=== PATIENT | male | born 1940 | race Caucasian/White ===

== ENCOUNTER 2016-12-03 17:04 | Emergency (ER) | payer MEDICARE, OTHER ==
[2016-12-03 17:24] VITALS: TEMP 98.4
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
[2016-12-03 19:01] LABS: Basophils % (A) 0 %; CH 26.6; CHCM 31.2; Eosinophils # (A) 0.1 k/uL (0-0.7); Eosinophils % (A) 1 %; HCT 42.5 % (39.0-53.0); HGB 13.3 gm/dL (13.0-17.5); Hypochromasia Moderate; Luc # (Auto) 0.16; Luc % (Auto) 2; Lymphocytes # (A) 0.7 k/uL (1.0-4.8); Lymphocytes % (A) 10 %; MCH 26.7 pg (25.0-35.0); MCHC 31.2 g/dL (31.0-37.0); MCV 85.4 fL (80.0-100.0); Mean Platelet Volume 6.6; Monocytes # (A) 0.7 k/uL (0-1.0); Monocytes % (A) 10 %; Neutrophils # (A) 5.5 k/uL (1.3-7.7); Neutrophils % (A) 76 %; RBC 4.98 m/uL (4.30-5.90); RDW 14.5 % (11.5-15.5); WBC 7.2 k/uL (3.8-10.6); WBC (Perox) 6.94
[2016-12-03 19:07] LABS: Appearance,Urine Clear (Clear); Bilirubin,Urine Negative (Negative); Glucose,Urine (UA) Negative (Negative); Ketones,Urine Trace (Negative); Leukocyte Esterase,Urine Negative (Negative); Nitrite,Urine Negative (Negative); PH, Urine 6.5 (5.0-8.0); Protein,Urine Negative (Negative); Specific Gravity,Urine 1.007 (1.001-1.035); UA Billing (MACRO vs. MICRO) CHEM; Urobilinogen,Urine <2.0 mg/dL (<2.0)
[2016-12-03 19:12] LABS: ALT 43 U/L (21-72); AST 29 U/L (17-59); Alkaline Phosphatase 123 U/L (38-126); Anion Gap 7 mmol/L; Blood Urea Nitrogen 9 mg/dL (9-20); Carbon Dioxide 30 mmol/L (22-30); Chloride 101 mmol/L (98-107); Glucose 96 mg/dL (74-99); Non-African American GFR(MDRD) >60 (>60 ml/min/1.73 sqM); Potassium 4.4 mmol/L (3.5-5.1); Sodium 138 mmol/L (137-145); Total Bilirubin 1.1 mg/dL (0.2-1.3); Total Protein 6.9 g/dL (6.3-8.2)
--- NOTE | 2016-12-03 19:20 | XR ---
EXAMINATION TYPE: XR abdomen 2V DATE OF EXAM: 12/03/2016 7:11 PM COMPARISON: NONE HISTORY: Swelling TECHNIQUE: 3 views FINDINGS: There is no sign of intestinal obstruction or pneumoperitoneum. Fecal pattern is normal. Th ere is slight blunting of costophrenic angles. I see no pathologic calcifications over the kidneys. IMPRESSION: Nonacute abdomen. Pleural reaction and infiltrate and atelectasis at the lung bases is ne w compared to the chest x-ray of 03/31/2016
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
[2016-12-03 19:57] VITALS: RESP 16
[2016-12-03] MEDS ORDERED: MAGNESIUM CITRATE 296 ML BOTTLE PO ONE (20:17)
[2016-12-03 20:39] VITALS: BP 136/79; PULSE 77
== END 2016-12-03 20:38 | disposition home or self-care (01) ==
LOC: EC 17:04
DX: N43.3 Hydrocele, unspecified (principal); I86.1 Scrotal varices; I10 Essential (primary) hypertension; I25.10 Atherosclerotic heart disease of native coronary artery without angina pectoris; Z87.891 Personal history of nicotine dependence; Z79.01 Long term (current) use of anticoagulants; Z79.899 Other long term (current) drug therapy; Z86.73 Personal history of transient ischemic attack (TIA), and cerebral infarction without residual deficits
CPT/HCPCS: 36415; 74020; 76870; 80053; 81003; 85025; 87086; 93975; 99284

== ENCOUNTER 2016-12-13 12:44 | Inpatient (IN) | payer MEDICARE, OTHER ==
[2016-12-13 13:40] LABS: Basophils % (A) 1 %; CH 26.6; CHCM 32.6; Eosinophils # (A) 0.1 k/uL (0-0.7); Eosinophils % (A) 1 %; HCT 39.2 % (39.0-53.0); HDW 3.55; Hypochromasia Slight; Luc # (Auto) 0.22; Luc % (Auto) 3; Lymphocytes # (A) 0.6 k/uL (1.0-4.8); Lymphocytes % (A) 9 %; MCH 27.1 pg (25.0-35.0); MCHC 33.1 g/dL (31.0-37.0); MCV 81.9 fL (80.0-100.0); Mean Platelet Volume 6.6; Monocytes # (A) 0.7 k/uL (0-1.0); Monocytes % (A) 9 %; Neutrophils # (A) 5.8 k/uL (1.3-7.7); Neutrophils % (A) 78 %; Poikilocytosis Slight; RBC 4.79 m/uL (4.30-5.90); RDW 14.5 % (11.5-15.5); WBC 7.5 k/uL (3.8-10.6); WBC (Perox) 7.73
[2016-12-13 13:41] LABS: VBG PH 7.37 (7.31-7.41)
[2016-12-13 13:49] LABS: ALT 40 U/L (21-72); AST 23 U/L (17-59); Alkaline Phosphatase 127 U/L (38-126); Anion Gap 8 mmol/L; Blood Urea Nitrogen 10 mg/dL (9-20); Calcium 8.8 mg/dL (8.4-10.2); Carbon Dioxide 27 mmol/L (22-30); Chloride 98 mmol/L (98-107); Glucose 92 mg/dL (74-99); Non-African American GFR(MDRD) >60 (>60 ml/min/1.73 sqM); Potassium 4.1 mmol/L (3.5-5.1); Sodium 133 mmol/L (137-145); Total Bilirubin 0.9 mg/dL (0.2-1.3); Total Protein 6.4 g/dL (6.3-8.2)
[2016-12-13 13:50] LABS: INR 1.4 (<1.1); Prothrombin Time 14.1 sec (9.0-12.0)
--- NOTE | 2016-12-13 13:58 | XR ---
EXAMINATION TYPE: XR chest 2V DATE OF EXAM: 12/13/2016 COMPARISON: March 31, 2016 HISTORY: Dyspnea TECHNIQUE: Frontal and lateral views of the chest are obtained. FINDINGS: The cardiac silhouette is top normal. Mediastinal silhouette unremarkable otherwise. There are bilateral mild/moderate effusions, greater on the left. No pneumothorax. There is a fine reticular pattern of increased density throughout lung parenchyma of the lower lobes, consistent with mild interstitial phase pulmonary edema. Bones and soft tissues are unremarkable. IMPRESSION: NEW BILATERAL PLEURAL EFFUSIONS, GREATER ON THE LEFT, WITH EVIDENCE OF MILD INTERSTITIAL PHASE PULMON MODE EDEMA.
[2016-12-13 13:59] LABS: Creatine Kinase 78 U/L (55-170)
[2016-12-13 14:12] LABS: Creatine Kinase MB 1.1 ng/mL (0.0-2.4); Troponin I <0.012 ng/mL (0.000-0.034)
[2016-12-13] MEDS ORDERED: FUROSEMIDE 10 MG/ML 4 ML VIAL IV STA (14:25)
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
[2016-12-13] MEDS ORDERED: DILTIAZEM 125 MG in SODIUM CHLORIDE 0.9% 100 ML IV ONE (16:08)
[2016-12-13] MEDS: SODIUM CHLORIDE 0.9% 1,000 ML IV SCH (16:44)
[2016-12-13] MEDS: ATORVASTATIN 40 MG TAB PO SCH (21:10)
[2016-12-13] MEDS: METOPROLOL TARTRATE 12.5 MG TAB PO SCH (21:11)
[2016-12-13] MEDS: MEMANTINE 10 MG TAB PO SCH (21:11)
[2016-12-13] MEDS: NITROGLYCERIN OINT 1 INCH/GM PACKET TOPICAL SCH ×2 (21:11→21:22)
[2016-12-13] MEDS: APIXABAN 5 MG TAB PO SCH (21:11)
[2016-12-13] MEDS: LISINOPRIL 10 MG TAB PO SCH (21:11)
[2016-12-13] MEDS: DONEPEZIL 10 MG TAB PO SCH (21:11)
[2016-12-13] MEDS: FUROSEMIDE 10 MG/ML 4 ML VIAL IV SCH (22:37)
[2016-12-14] MEDS ORDERED: TURMERIC ROOT EXTRACT PO SCH (09:00)
[2016-12-14] MEDS ORDERED: FISH OIL PO SCH (09:00)
[2016-12-14] MEDS ORDERED: NON-FORMULARY DRUG (Ubidecarenone [Co Q-10] 100 MG) PO SCH (09:00)
[2016-12-14] MEDS ORDERED: DHA PO SCH (09:00)
[2016-12-14] MEDS ORDERED: OMEGA PO SCH (09:00)
[2016-12-14] MEDS ORDERED: EPA PO SCH (09:00)
[2016-12-14] MEDS ORDERED: NON-FORMULARY DRUG (Biotin [Biotin] 5 MG) PO SCH (09:00)
[2016-12-14] MEDS ORDERED: TURMERIC PO SCH (09:00)
[2016-12-14] MEDS ORDERED: amLODIPine 5 MG TAB PO SCH (09:00)
[2016-12-14] MEDS: FUROSEMIDE 10 MG/ML 4 ML VIAL IV SCH ×3 (09:20→23:54)
[2016-12-14] MEDS: APIXABAN 5 MG TAB PO SCH ×2 (09:20→20:28)
[2016-12-14] MEDS: CYANOCOBALAMIN 500 MCG TAB PO SCH (09:21)
[2016-12-14] MEDS: MEMANTINE 10 MG TAB PO SCH ×2 (09:21→20:28)
[2016-12-14] MEDS: MULTIVITAMINS, THERA 1 EACH TAB PO SCH (09:21)
[2016-12-14] MEDS: NITROGLYCERIN OINT 1 INCH/GM PACKET TOPICAL SCH ×3 (09:21→23:46)
[2016-12-14] MEDS: TAMSULOSIN 0.4 MG CAP.ER.24H PO SCH (09:21)
[2016-12-14] MEDS: LISINOPRIL 10 MG TAB PO SCH ×2 (09:22→20:28)
[2016-12-14] MEDS: METOPROLOL TARTRATE 12.5 MG TAB PO SCH ×2 (09:22→20:28)
[2016-12-14] MEDS: VIT A,C & E-LUTEIN-MINERALS 1 EACH TAB PO SCH (09:22)
[2016-12-14] MEDS: DONEPEZIL 10 MG TAB PO SCH ×2 (09:22→20:28)
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
--- NOTE | 2016-12-14 10:35 | P.PN ---
Progress Note - Text This is an addendum to the dictated cardiology consultation. The patient presents with a 6 weeks progressive edema, PND and orthopnea. He noted severe scrotal edema and has gained 30 pounds over 6 weeks. He has a history of CAD status post stenting of the RCA in 2012 with a normal systolic function and no significant valvular disease. The patient was seen in the emergency room and [place] few weeks ago was chest discomfort and was told that there was no evidence of acute ischemic event. He has not had any recent chest discomfort, he denies any palpitations but he had the recent episode of dizziness and presyncope with change of position. The patient has a history of chronic atrial fibrillation and has been maintained on anticoagulation. His physical examination is consistent with elevated JVD, severe edema in the lower extremities as well as in the scrotum. Evidence to suggest ascites and decreased breath sounds at the base. His lab data showed normal troponin and his NT proBNP is minimally elevated. The patient presents with severe fluid overload with a history of a normal systolic function in the past. The etiology of his symptoms is unclear. We will continue intravenous diuretics, add spironolactone and obtain an echocardiogram with Doppler. A lot of his symptoms are suggestive of right- sided failure. The patient proteins normal and his hemoglobin is normal as well. Depending on the results of the testing further recommendations will be made. Thank you for this consult we will follow with you.
--- NOTE | 2016-12-14 10:36 | ECHOF ---
Referral Reason:Pulmonary edema MEASUREMENTS -------- HEIGHT: 188.0 cm WEIGHT: 103.0 kg BP: 125/78 RVIDd: 3.2 cm (< 3.3) IVSd: 1.2 cm (0.6 - 1.1) LVIDd: 4.0 cm (3.9 - 5.3) LVPWd: 1.2 cm (0.6 - 1.1) IVSs: 1.8 cm LVIDs: 2.8 cm LVPWs: 1.6 cm LA Diam: 4.1 cm (2.7 - 3.8) LAESV Index (A-L): 16.06 ml/m Ao Diam: 3.7 cm (2.0 - 3.7) AV Cusp: 2.2 cm (1.5 - 2.6) MV EXCURSION: 18.742 mm (> 18.000) MV EF SLOPE: 114 mm/s (70 - 150) EPSS: 1.0 cm RAP: 15.00 mmHg RVSP: 38.81 mmHg FINDINGS -------- Atrial fibrillation. This was a technically difficult study with suboptimal views. The left ventricular size is normal. There is borderline concentric left ventricular hypertrophy. Overall left ventricular systolic function is mildly impaired with, an EF between 45 - 50 %. The right ventricle is normal in size and function. The right ventricle is mildly enlarged. Normal LA size by volume 22+/-6 ml/m2. The right atrium is normal in size. 1.5mg of Definity was utilized for enhancement of images Aortic valve is trileaflet and is mildly thickened. Mild mitral annular calcification present. There is trace to mild mitral regurgitation. Mild tricuspid regurgitation present. There is mild pulmonary hypertension. The right ventricular systolic pressure, as measured by Doppler, is 38.81mmHg. The pulmonic valve was not well visualized. The aortic root is dilated measuring 3.7cm. The inferior vena cava is dilated with no significant inspiratory collapse which is consistent estimated right atrial pressure of >20 mmHg. There is a trivial pericardial effusion present. CONCLUSIONS -------- 1. Atrial fibrillation. 2. Aortic valve is trileaflet and is mildly thickened. 3. Mild mitral annular calcification present. 4. There is trace to mild mitral regurgitation. 5. Mild tricuspid regurgitation present. 6. There is mild pulmonary hypertension. 7. The right ventricular systolic pressure, as measured by Doppler, is 38.81mmHg. 8. The pulmonic valve was not well visualized. 9. The aortic root is dilated measuring 3.7cm. 10. The inferior vena cava is dilated with no significant inspiratory collapse which is consistent estimated right atrial pressure of >20 mmHg. 11. There is a trivial pericardial effusion present. 12. This was a technically difficult study with suboptimal views. 13. The left ventricular size is normal. 14. There is borderline concentric left ventricular hypertrophy. 15. Overall left ventricular systolic function is mildly impaired with, an EF between 45 - 50 %. 16. The right ventricle is normal in size and function. 17. The right ventricle is mildly enlarged. 18. Normal LA size by volume 22+/-6 ml/m2. 19. 1.5mg of Definity was utilized for enhancement of images [employer]ILER[employer]SE MECH[employer]IC: Rosa Chavira RDCS
[2016-12-14 11:12] VITALS: BMI 28.5
[2016-12-14] MEDS: SPIRONOLACTONE 25 MG TAB PO SCH (12:20)
[2016-12-14] MEDS ORDERED: ASPIRIN 325 MG TAB PO SCH (15:37)
[2016-12-14] MEDS: SODIUM CHLORIDE 0.9% 1,000 ML IV SCH (15:40)
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
[2016-12-14] MEDS: ATORVASTATIN 40 MG TAB PO SCH (20:28)
[2016-12-14] MEDS: FAMOTIDINE 20 MG TAB PO SCH (20:34)
[2016-12-15] MEDS: METOPROLOL TARTRATE 12.5 MG TAB PO SCH ×2 (05:51→20:09)
[2016-12-15] MEDS: LISINOPRIL 10 MG TAB PO SCH (05:53)
[2016-12-15 06:42] LABS: CH 26.2; CHCM 31.2; HCT 39.5 % (39.0-53.0); HDW 3.31; HGB 12.4 gm/dL (13.0-17.5); Hypochromasia Marked; MCH 26.4 pg (25.0-35.0); MCHC 31.3 g/dL (31.0-37.0); MCV 84.4 fL (80.0-100.0); Mean Platelet Volume 6.9; RBC 4.69 m/uL (4.30-5.90); RDW 15.1 % (11.5-15.5); WBC 7.5 k/uL (3.8-10.6)
[2016-12-15 06:51] LABS: ALT 33 U/L (21-72); AST 23 U/L (17-59); Alkaline Phosphatase 115 U/L (38-126); Anion Gap 10 mmol/L; Blood Urea Nitrogen 16 mg/dL (9-20); Calcium 8.5 mg/dL (8.4-10.2); Carbon Dioxide 28 mmol/L (22-30); Chloride 97 mmol/L (98-107); Glucose 93 mg/dL (74-99); Non-African American GFR(MDRD) >60 (>60 ml/min/1.73 sqM); Sodium 135 mmol/L (137-145); Total Protein 6.1 g/dL (6.3-8.2)
[2016-12-15] MEDS: APIXABAN 5 MG TAB PO SCH ×2 (08:38→20:09)
[2016-12-15] MEDS: TAMSULOSIN 0.4 MG CAP.ER.24H PO SCH (08:39)
[2016-12-15] MEDS: NITROGLYCERIN OINT 1 INCH/GM PACKET TOPICAL SCH ×2 (08:39→16:20)
[2016-12-15] MEDS: CYANOCOBALAMIN 500 MCG TAB PO SCH (08:39)
[2016-12-15] MEDS: FUROSEMIDE 10 MG/ML 4 ML VIAL IV SCH (08:39)
[2016-12-15] MEDS: VIT A,C & E-LUTEIN-MINERALS 1 EACH TAB PO SCH (08:40)
[2016-12-15] MEDS: FAMOTIDINE 20 MG TAB PO SCH ×2 (08:40→20:09)
[2016-12-15] MEDS: DONEPEZIL 10 MG TAB PO SCH ×2 (08:40→20:09)
[2016-12-15] MEDS: MEMANTINE 10 MG TAB PO SCH ×2 (08:40→20:09)
[2016-12-15] MEDS: MULTIVITAMINS, THERA 1 EACH TAB PO SCH (08:58)
[2016-12-15] MEDS: SPIRONOLACTONE 25 MG TAB PO SCH (08:58)
--- NOTE | 2016-12-15 14:14 | P.PN ---
Subjective This is a pleasant 75-year-old gentleman patient of Dr. Ta. He has underlying history of chronic atrial fibrillation hypertension hyperlipidemia mesothelioma CAD with prior cardiac stents 3 years ago and TIA in May 2013 who presented to the hospital after he complained of significant shortness of breath, dyspnea on exertion, PND, increasing lower extremity edema, and scrotal enlargement with hydrocele, he was seen at the office approximately 4 weeks for the hydrocele and was seen by prior to admission and was sent back to the office as this is related to worsening anasarca and congestive heart failure. He was seen at the office today and was subsequently admitted to the hospital for CHF with anasarca. Patient denies any chest pain he has been using his recliner to lay down at night secondary to PND, patient denies any lightheadedness no dizziness no falls noted. He gained 35 pounds in 4 weeks, He was subsequently seen in the emergency room EKG shows atrial fibrillation which is chronic heart rate in the 110, occasional PVC, patient was started Cardizem drip 5 mg, he is chronically anticoagulated. ProBNP off 1090, last ejection fraction 55% patient was started on IV Lasix 40 mg every 8 hours 12/14, echocardiogram was performed this time, EF of 45-50%, right atrial pressure over 20, right ventricular systolic pressure of 38, mild pulmonary hypertension, mild MR and mild TR and mild thickening of aortic valve 12/15: Fluid balance is -1040. Weight is not accurate. TSH was normal at 2.350. Sodium 135 and chloride 97. GFR is greater than 60. Lower extremity edema is improved. Patient continues to have significant scrotal edema and this is to be elevated. Lisinopril decreased to 5 g twice daily to allow for Lasix increased to 60 mg every 8 hours. IV fluids to saline lock. Objective - Vital Signs Vital signs: Vital Signs Temp 97.2 F L 12/15/16 04:00 Pulse 68 12/15/16 04:00 Resp 20 12/15/16 04:00 BP 116/54 12/15/16 04:00 Pulse Ox 96 12/15/16 04:00 Intake & Output 12/14/16 12/15/16 12/15/16 18:59 06:59 18:59 Intake Total 588 320 Output Total 1200 Balance 588 -880 Weight 101 kg 123.6 kg Intake: IV 320 Sodium Chloride 0.9% 1, 320 000 ml @ 20 mls/hr IV . Q24H [facility]ATO Rx#:[id number] Intake, IV Titration 240 Amount Sodium Chloride 0.9% 1, 240 000 ml @ 20 mls/hr IV . Q24H TATO Rx#:[id number] Oral 348 Output: Urine 1200 Other: Voiding Method Urinal Urinal - Exam General appearance: cooperative, no acute distress, obese - EENT Eyes: anicteric sclerae, EOMI, PERRLA, dentition normal, normal appearance ENT: hard of hearing, NA/AT, normal oropharynx - Respiratory Respiratory: bilateral: CTA, diminished, negative: dullness, rales, rhonchi, wheezing, prolonged expiration - Cardiovascular Rhythm: regular Heart sounds: normal: S1, S2 Abnormal Heart Sounds: no systolic murmur, no diastolic murmur, no rub, no S3 Gallop, no S4 Gallop, no click, no other - Gastrointestinal General gastrointestinal: normal bowel sounds, soft - Genitourinary Male genitourinary: penile edema - Integumentary Integumentary: decreased turgor, normal - Neurologic Neurologic: CNII-XII intact - Musculoskeletal Musculoskeletal: gait normal, generalized weakness, strength equal bilaterally - Labs CBC & Chem 7: 12/15/16 06:03 12/15/16 06:03 Labs: Abnormal Lab Results - Last 24 Hours (Table) 12/15/16 12/15/16 Range/Units 06:03 06:03 Hgb 12.4 L (13.0-17.5) gm/dL Sodium 135 L (137-145) mmol/L Chloride 97 L (98-107) mmol/L Total Protein 6.1 L (6.3-8.2) g/dL Albumin 3.2 L (3.5-5.0) g/dL Assessment and Plan Plan: 1. Anasarca with acute diastolic heart failure, last ejection fraction 55%. Lasix increased to 60 mg IV every 8 hours, I&O and daily weights, [place] wrap on the lower extremities, repeat echocardiogram to evaluate LV dysfunction would be done, cardiology is going to follow him in consultation, 2. Atrial fibrillation with rapid ventricular rate with history of chronic atrial fibrillation. Continue Lopressor and eliquis. Cardiology consult is appreciated. 3. CAD with previous percutaneous intervention in the past 2012 on aspirin amlodipine metoprolol Lipitor lisinopril 4. Scrotal edema with hydrocele secondary to anasarca, elevation of scrotum to him to help the edema, he was recently seen by urology as outpatient without any anatomical concerns, 5. BPH without any lower tract symptomatology, patient is on Flomax 0.4 mg daily, evaluate for urinary retention 6. Hypertension currently on metoprolol 12.5 mg twice a day, Aldactone, lisinopril 10 mg twice a day and IV Lasix 7. Dementia on Namenda 10 mg twice a day no changes made 8. Hyperlipidemia on Lipitor 40 no changes made 9. DVT prophylaxis on eliquis. 10. GI prophylaxis Pepcid 11. CODE STATUS full Discharge plan: To be determined. PT, OT and case management. Impression and plan of care have been directed as dictated by the signing physician. Wen Raya nurse practitioner acting as scribe for signing physician.
--- NOTE | 2016-12-15 16:02 | P.PN ---
Subjective Principal diagnosis: Pulmonary edema and anasarca This is a pleasant 76-year-old gentleman who follows regularly with Dr. Lombardi in the office has a known history of hypertension, dyslipidemia, CAD with stent placement to the RCA in 2012 as well as a lesion in the diagonal branch which is being managed medically. He also has a history of mild AR. Senna to the emergency department with complaints of increasing lower extremity, abdominal and scrotal edema. Weight gain of about 35 pounds in the last 4 weeks. He's also been complaining of increasing shortness of breath unable to lay flat and has been sleeping in a recliner. He has been having difficulties doing his regular activities such as climbing the stairs in his home which she has extremely short of breath with this time. Patient was hospitalized in [place] while on vacation about 6 weeks ago with complaints of chest discomfort which patient was told was related to his atrial fibrillation, these records are not available to me at this time. He's had no complaints of palpitations, dizziness. No recurrent episodes of chest discomfort since hospitalization in early October. Chest x-ray on admission shows new bilateral pleural effusions left greater than right and also evidence of mild interstitial pulmonary edema. EKG showed patient to be in atrial fibrillation which is chronic, heart rate in the 110s with occasional PVC. 12/15/2016 patient seen and examined this morning, his weight is down 1.5 kg from yesterday. Overall feeling much better. Continues to diurese well. BUN 16, creat 0.99. Objective - Vital Signs Vital signs: Vital Signs Temp 97.8 F 12/15/16 12:00 Pulse 111 H 12/15/16 12:00 Resp 20 12/15/16 12:00 BP 94/68 12/15/16 12:00 Pulse Ox 96 12/15/16 12:00 Intake & Output 12/14/16 12/15/16 12/15/16 18:59 06:59 18:59 Intake Total 588 320 218 Output Total 1200 300 Balance 588 -880 -82 Weight 101 kg 123.6 kg 100.9 kg Intake: IV 320 Sodium Chloride 0.9% 1, 320 000 ml @ 20 mls/hr IV . Q24H [facility] Rx#:[id number] Intake, IV Titration 240 Amount Sodium Chloride 0.9% 1, 240 000 ml @ 20 mls/hr IV . Q24H [facility] Rx#:[id number] Oral 348 218 Output: Urine 1200 300 Other: Voiding Method Urinal Urinal Urinal - Exam PHYSICAL EXAMINATION: HEENT: Head is atraumatic, normocephalic. Pupils equal, round. Neck is supple. There is no elevated jugular venous pressure. HEART EXAMINATION: Heart S1 and S2 irregularly irregular CHEST EXAMINATION: Lungs are clear to auscultation and precussion. No chest wall tenderness is noted on palpation or with deep breathing. ABDOMEN: Soft, mildly distended . Bowel sounds are heard. No organomegaly noted. EXTREMITIES: 1+ peripheral pulses with 2+ evidence of peripheral edema and no calf tenderness noted. Significant persistent scrotal edema, improved from admission NEUROLOGIC patient is awake, alert and oriented -3. . - Labs CBC & Chem 7: 12/15/16 06:03 12/15/16 06:03 Labs: Abnormal Lab Results - Last 24 Hours (Table) 12/15/16 12/15/16 Range/Units 06:03 06:03 Hgb 12.4 L (13.0-17.5) gm/dL Sodium 135 L (137-145) mmol/L Chloride 97 L (98-107) mmol/L Total Protein 6.1 L (6.3-8.2) g/dL Albumin 3.2 L (3.5-5.0) g/dL Assessment and Plan (1) Chronic a-fib Status: Acute (2) HTN (hypertension) Status: Acute (3) Hyperlipemia Status: Acute (4) Peripheral edema Status: Acute (5) Scrotal edema Status: Acute Plan: From cardiology's perspective, we will recommend to continue current dose of IV Lasix. Check lytes BUN and creatinine in the morning. DNP note has been reviewed, I agree with a documented findings and plan of care. Patient was seen and examined.
[2016-12-15] MEDS: FUROSEMIDE 10 MG/ML 10 ML VIAL IV SCH (16:28)
[2016-12-16] MEDS: ATORVASTATIN 40 MG TAB PO SCH ×2 (00:14→20:24)
[2016-12-16] MEDS: LISINOPRIL 5 MG TAB PO SCH ×3 (00:15→23:34)
[2016-12-16] MEDS: FUROSEMIDE 10 MG/ML 10 ML VIAL IV SCH ×3 (00:15→16:05)
[2016-12-16] MEDS: NITROGLYCERIN OINT 1 INCH/GM PACKET TOPICAL SCH ×2 (00:16→08:04)
[2016-12-16 07:01] LABS: Anion Gap 8 mmol/L; Blood Urea Nitrogen 16 mg/dL (9-20); Calcium 8.4 mg/dL (8.4-10.2); Carbon Dioxide 31 mmol/L (22-30); Chloride 97 mmol/L (98-107); Glucose 90 mg/dL (74-99); Non-African American GFR(MDRD) >60 (>60 ml/min/1.73 sqM); Potassium 4.3 mmol/L (3.5-5.1); Sodium 136 mmol/L (137-145)
[2016-12-16] MEDS: METOPROLOL TARTRATE 12.5 MG TAB PO SCH (08:06)
[2016-12-16] MEDS: FAMOTIDINE 20 MG TAB PO SCH ×2 (08:06→20:24)
[2016-12-16] MEDS: APIXABAN 5 MG TAB PO SCH ×2 (08:06→20:24)
[2016-12-16] MEDS: MEMANTINE 10 MG TAB PO SCH ×2 (08:07→20:24)
[2016-12-16] MEDS: DONEPEZIL 10 MG TAB PO SCH ×2 (08:07→20:24)
[2016-12-16] MEDS: SPIRONOLACTONE 25 MG TAB PO SCH (08:08)
[2016-12-16] MEDS: TAMSULOSIN 0.4 MG CAP.ER.24H PO SCH (08:08)
[2016-12-16] MEDS: CYANOCOBALAMIN 500 MCG TAB PO SCH (11:32)
[2016-12-16] MEDS: MULTIVITAMINS, THERA 1 EACH TAB PO SCH (11:33)
[2016-12-16] MEDS: VIT A,C & E-LUTEIN-MINERALS 1 EACH TAB PO SCH (11:33)
--- NOTE | 2016-12-16 12:09 | P.PN ---
Subjective Principal diagnosis: Anasarca, pulmonary edema Is a pleasant 76-year-old gentleman who follows regularly with Dr. Garcia in the office it has a known history of hypertension, dyslipidemia, CAD with stent placement to RCA in 2013 as well as a lesion in the diagonal branch which is being managed medically. Presented to the emergency department with complaints of increasing lower extremity edema, abdominal and scrotal edema as well as a 35 pound weight gain in the last 4 weeks. He had also been complaining of some orthopnea and dyspnea on exertion. On examination today, patient is resting comfortably in bed with head of bed flat. He is breathing better and has noticed significant decrease in his edema. Heart rate somewhat uncontrolled on metoprolol 12.5 mg by mouth twice a day. He is currently on Lasix 60 mg IV push every 8 hours. He is diuresing well, weight is down 1 kg from yesterday. Objective - Vital Signs Vital signs: Vital Signs Temp 97.1 F L 12/16/16 11:53 Pulse 102 H 12/16/16 11:53 Resp 18 12/16/16 11:53 BP 104/70 12/16/16 11:53 Pulse Ox 95 12/16/16 11:53 Intake & Output 12/15/16 12/16/16 12/16/16 18:59 06:59 18:59 Intake Total 381 90 120 Output Total 300 1050 Balance 81 -960 120 Weight 100.9 kg 99.1 kg Intake: IV 20 Sodium Chloride 0.9% 1, 20 000 ml @ 20 mls/hr IV . Q24H [facility] Rx#:[id number] Oral 381 90 100 Output: Urine 300 1050 Other: Voiding Method Urinal Urinal # Voids 2 - Exam PHYSICAL EXAMINATION: HEENT: Head is atraumatic, normocephalic. Pupils equal, round. Neck is supple. There is no elevated jugular venous pressure. HEART EXAMINATION: Heart sounds irregular regular, S1 and S2 normal. No murmur or gallop heard. CHEST EXAMINATION: Lungs are clear to auscultation and precussion. No chest wall tenderness is noted on palpation or with deep breathing. ABDOMEN: Soft, nontender. Bowel sounds are heard. No organomegaly noted. Persistent scrotal edema, improved from admission. EXTREMITIES: 1+ peripheral pulses with evidence of 1+ peripheral edema and no calf tenderness noted. NEUROLOGIC patient is awake, alert and oriented x3, poor short-term memory. . - Labs CBC & Chem 7: 12/15/16 06:03 12/16/16 05:57 Labs: Abnormal Lab Results - Last 24 Hours (Table) 12/16/16 Range/Units 05:57 Sodium 136 L (137-145) mmol/L Chloride 97 L (98-107) mmol/L Carbon Dioxide 31 H (22-30) mmol/L Assessment and Plan Plan: Assessment and plan #1 chronic atrial fibrillation #2 hypertension #3 hyperlipidemia #4 history of mild AR per echo #5 peripheral edema #6 scrotal edema From cardiology perspective, we will continue current dose of IV Lasix. Continue follow his renal function, daily weights, intake and output. Increase metoprolol to 25 mg by mouth twice a day. Further recommendations to follow. 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 Patient was seen and examined.
--- NOTE | 2016-12-16 12:44 | P.PN ---
Subjective This is a pleasant 75-year-old gentleman patient of Dr. Ta. He has underlying history of chronic atrial fibrillation hypertension hyperlipidemia mesothelioma CAD with prior cardiac stents 3 years ago and TIA in May 2013 who presented to the hospital after he complained of significant shortness of breath, dyspnea on exertion, PND, increasing lower extremity edema, and scrotal enlargement with hydrocele, he was seen at the office approximately 4 weeks for the hydrocele and was seen by prior to admission and was sent back to the office as this is related to worsening anasarca and congestive heart failure. He was seen at the office today and was subsequently admitted to the hospital for CHF with anasarca. Patient denies any chest pain he has been using his recliner to lay down at night secondary to PND, patient denies any lightheadedness no dizziness no falls noted. He gained 35 pounds in 4 weeks, He was subsequently seen in the emergency room EKG shows atrial fibrillation which is chronic heart rate in the 110, occasional PVC, patient was started Cardizem drip 5 mg, he is chronically anticoagulated. ProBNP off 1090, last ejection fraction 55% patient was started on IV Lasix 40 mg every 8 hours 12/14, echocardiogram was performed this time, EF of 45-50%, right atrial pressure over 20, right ventricular systolic pressure of 38, mild pulmonary hypertension, mild MR and mild TR and mild thickening of aortic valve 12/15: Fluid balance is -1040. Weight is not accurate. TSH was normal at 2.350. Sodium 135 and chloride 97. GFR is greater than 60. Lower extremity edema is improved. Patient continues to have significant scrotal edema and this is to be elevated. Lisinopril decreased to 5 g twice daily to allow for Lasix increased to 60 mg every 8 hours. IV fluids to saline lock. 12/16: 0 weight is down almost 3 kg since admission. He has been afebrile. Heart rate running in the low 100s. Blood pressure is on the low side. Lasix is continued at 60 mg IV every 8 hours. Lower extremity edema is improving an [place] wrap in place. Patient continues to have scrotal edema. Patient's is requesting hospital bed and prescription left for case management to make arrangements. Anticipate patient will be here until Monday. Objective - Vital Signs Vital signs: Vital Signs Temp 97.9 F 12/16/16 04:00 Pulse 105 H 12/16/16 04:00 Resp 18 12/16/16 04:00 BP 113/71 12/16/16 04:00 Pulse Ox 95 12/16/16 04:00 Intake & Output 12/15/16 12/16/16 12/16/16 18:59 06:59 18:59 Intake Total 381 90 Output Total 300 1050 Balance 81 -960 Weight 100.9 kg 99.1 kg Intake: Oral 381 90 Output: Urine 300 1050 Other: Voiding Method Urinal Urinal # Voids 2 - Exam General appearance: cooperative, no acute distress, obese - EENT Eyes: anicteric sclerae, EOMI, PERRLA, dentition normal, normal appearance ENT: hard of hearing, NA/AT, normal oropharynx - Respiratory Respiratory: bilateral: CTA, diminished, negative: dullness, rales, rhonchi, wheezing, prolonged expiration - Cardiovascular Rhythm: regular Heart sounds: normal: S1, S2 Abnormal Heart Sounds: no systolic murmur, no diastolic murmur, no rub, no S3 Gallop, no S4 Gallop, no click, no other - Gastrointestinal General gastrointestinal: normal bowel sounds, soft - Genitourinary Male genitourinary: penile edema - Integumentary Integumentary: decreased turgor, normal - Neurologic Neurologic: CNII-XII intact - Musculoskeletal Musculoskeletal: gait normal, generalized weakness, strength equal bilaterally - Labs CBC & Chem 7: 12/15/16 06:03 12/16/16 05:57 Labs: Abnormal Lab Results - Last 24 Hours (Table) 12/16/16 Range/Units 05:57 Sodium 136 L (137-145) mmol/L Chloride 97 L (98-107) mmol/L Carbon Dioxide 31 H (22-30) mmol/L Assessment and Plan Plan: 1. Anasarca with acute diastolic heart failure. Lasix increased to 60 mg IV every 8 hours, I&O and daily weights, Austin wrap on the lower extremities, repeat echocardiogram done, cardiology is following in consultation, 2. Atrial fibrillation with rapid ventricular rate with history of chronic atrial fibrillation. Continue Lopressor and eliquis. Cardiology consult is appreciated. 3. CAD with previous percutaneous intervention in the past 2012 on aspirin amlodipine metoprolol Lipitor lisinopril 4. Scrotal edema with hydrocele secondary to anasarca, elevation of scrotum to him to help the edema, he was recently seen by urology as outpatient without any anatomical concerns, 5. BPH without any lower tract symptomatology, patient is on Flomax 0.4 mg daily, evaluate for urinary retention 6. Hypertension currently on metoprolol 12.5 mg twice a day, Aldactone, lisinopril 10 mg twice a day and IV Lasix 7. Dementia on Namenda 10 mg twice a day no changes made 8. Hyperlipidemia on Lipitor 40 no changes made 9. DVT prophylaxis on eliquis. 10. GI prophylaxis Pepcid 11. CODE STATUS full Discharge plan: Home with home care on Monday. Hospital bed arranged by case management for heart failure. Impression and plan of care have been directed as dictated by the signing physician. Wen Raya nurse practitioner acting as scribe for signing physician.
[2016-12-16] MEDS: METOPROLOL TARTRATE 25 MG TAB PO SCH (20:26)
[2016-12-17] MEDS: FUROSEMIDE 10 MG/ML 10 ML VIAL IV SCH ×2 (02:34→08:24)
[2016-12-17 07:09] LABS: Anion Gap 8 mmol/L; Blood Urea Nitrogen 16 mg/dL (9-20); Calcium 8.5 mg/dL (8.4-10.2); Carbon Dioxide 32 mmol/L (22-30); Chloride 96 mmol/L (98-107); Glucose 98 mg/dL (74-99); Non-African American GFR(MDRD) >60 (>60 ml/min/1.73 sqM); Potassium 4.2 mmol/L (3.5-5.1); Sodium 136 mmol/L (137-145)
[2016-12-17] MEDS: SPIRONOLACTONE 25 MG TAB PO SCH (08:15)
[2016-12-17] MEDS: FAMOTIDINE 20 MG TAB PO SCH ×2 (08:15→21:35)
[2016-12-17] MEDS: APIXABAN 5 MG TAB PO SCH ×2 (08:15→21:35)
[2016-12-17] MEDS: MEMANTINE 10 MG TAB PO SCH ×2 (08:16→21:35)
[2016-12-17] MEDS: METOPROLOL TARTRATE 25 MG TAB PO SCH ×2 (08:16→21:35)
[2016-12-17] MEDS: DONEPEZIL 10 MG TAB PO SCH ×2 (08:16→21:35)
[2016-12-17] MEDS: TAMSULOSIN 0.4 MG CAP.ER.24H PO SCH (08:30)
[2016-12-17 09:23] VITALS: RESP 18
[2016-12-17] MEDS: CYANOCOBALAMIN 500 MCG TAB PO SCH (11:39)
[2016-12-17] MEDS: MULTIVITAMINS, THERA 1 EACH TAB PO SCH (11:39)
[2016-12-17] MEDS: VIT A,C & E-LUTEIN-MINERALS 1 EACH TAB PO SCH (11:39)
[2016-12-17] MEDS: LISINOPRIL 5 MG TAB PO SCH ×2 (12:03→21:35)
--- NOTE | 2016-12-17 12:09 | PN ---
Mr. Cochran is a 76-year-old male who presented with symptoms of progressive edema, dyspnea and anasarca. He is feeling better this morning. His breathing is better. He denies any chest pain. No dizziness. No palpitation. He denies any nausea. He continued to be on Aldactone 25 mg daily, metoprolol 25 mg twice a day, lisinopril 5 mg twice a day, Lasix 60 mg IV q.8 hours, donepezil, Lipitor 40 mg daily and Eliquis 5 mg twice a day. PHYSICAL EXAMINATION: Blood pressure running in the one teens and down to the 90s with the heart rate in the 70s and 80s. LUNGS: Clear. HEART: Irregular, irregular. S1, S2, no S3, no rub appreciated. ABDOMEN: Soft, nontender. EXTREMITIES: Trace edema. Scrotal edema has improved remarkably. Lab data revealed BUN and creatinine 16 and 1.02. Potassium 4.2. IMPRESSION: 1. Fluid overload with congestive heart failure and scrotal edema, improving. 2. Atrial fibrillation, chronic anticoagulation. 3. History of coronary artery disease. 4. Hypertension. RECOMMENDATION: From the cardiac standpoint, I will cut down the dose of his IV Lasix because of his blood pressure will follow his renal function. By tomorrow, I will expect we should be able to switch him to oral treatment. Will follow his weight and depending on his progress, further recommendation will be made.
--- NOTE | 2016-12-17 12:48 | PN ---
INTERVAL HISTORY: Patient had rough night because of urinary frequency, where the patient was going to the bathroom almost every one hour secondary to the Lasix dose and the bed alarm will go off every time he goes to the bathroom. Patient's at the bedside who said that the patient is much better improved than presentation and the patient said he is at least 50% to 75% better than presentation. PHYSICAL EXAMINATION: VITAL SIGNS: Temperature 97.0, 84, 21, 110/69, 96% on room air. LUNGS: Diminished bilaterally. HEART: Normal S1, S2. ABDOMEN: Soft, no tenderness, positive bowel sounds in all 4 quadrants. LOWER EXTREMITIES: Improved edema. IMAGING AND LABS: Kidney function at baseline. Sodium slightly low at 136, normal otherwise. ASSESSMENT AND PLAN: 1. Severe anasarca with acute diastolic heart failure exacerbation. Patient will be continued on IV Lasix 60 mg 3 times daily. Dose to be tapered down upon improvement. Family showed a lot of concern regarding slowing down on the dose as patient is responding and feels better, we will continue close monitoring for his daily weight, I's and O's and continue monitoring his kidney function on a daily basis. 2. Atrial fibrillation with rapid ventricular response. Heart rate is currently under good control. The patient to be continued on beta yennifer. Patient on Eliquis for anticoagulation. 3. Scrotal edema, improved. 4. Benign prostatic hypertrophy. Will continue Flomax. 5. Hypertension, under fair control. 6. Mild dementia. We will continue Namenda. 7. Hyperlipidemia. Continue statin. 8. Discharge process based on clinical progress.
[2016-12-17] MEDS: ATORVASTATIN 40 MG TAB PO SCH (21:35)
[2016-12-17] MEDS: FUROSEMIDE 10 MG/ML 4 ML VIAL IV SCH (21:50)
[2016-12-18 06:49] LABS: Anion Gap 10 mmol/L; Blood Urea Nitrogen 15 mg/dL (9-20); Calcium 8.8 mg/dL (8.4-10.2); Carbon Dioxide 32 mmol/L (22-30); Chloride 94 mmol/L (98-107); Glucose 92 mg/dL (74-99); Non-African American GFR(MDRD) >60 (>60 ml/min/1.73 sqM); Potassium 4.2 mmol/L (3.5-5.1); Sodium 136 mmol/L (137-145)
[2016-12-18] MEDS: MEMANTINE 10 MG TAB PO SCH ×2 (08:07→21:04)
[2016-12-18] MEDS: FAMOTIDINE 20 MG TAB PO SCH ×2 (08:07→21:04)
[2016-12-18] MEDS: DONEPEZIL 10 MG TAB PO SCH ×2 (08:07→21:04)
[2016-12-18] MEDS: TAMSULOSIN 0.4 MG CAP.ER.24H PO SCH (08:07)
[2016-12-18] MEDS: APIXABAN 5 MG TAB PO SCH ×2 (08:07→21:04)
[2016-12-18] MEDS: SPIRONOLACTONE 25 MG TAB PO SCH (08:07)
[2016-12-18] MEDS: METOPROLOL TARTRATE 25 MG TAB PO SCH ×2 (08:07→21:04)
[2016-12-18] MEDS: FUROSEMIDE 10 MG/ML 4 ML VIAL IV SCH (08:15)
[2016-12-18] MEDS: LISINOPRIL 5 MG TAB PO SCH ×2 (12:51→21:04)
[2016-12-18] MEDS: MULTIVITAMINS, THERA 1 EACH TAB PO SCH (13:02)
[2016-12-18] MEDS: VIT A,C & E-LUTEIN-MINERALS 1 EACH TAB PO SCH (13:02)
[2016-12-18] MEDS: CYANOCOBALAMIN 500 MCG TAB PO SCH (13:02)
[2016-12-18] MEDS: FUROSEMIDE 20 MG TAB PO SCH (16:25)
--- NOTE | 2016-12-18 16:34 | PN ---
Mr. Cochran is a 76-year-old man with history of atrial fibrillation presented with symptoms of progressive dyspnea, peripheral edema and scrotum edema. He is feeling much better. He is ambulating. His edema has improved. He is denying any chest pain. No dizziness. No palpitation. He continues on Lasix 40 mg IV q.12 hours, Eliquis 5 mg twice a day, Lipitor 40 mg daily, ( ) 10 mg twice a day, Lisinopril 5 mg twice a day, Namenda 10 mg twice a day, metoprolol 25 mg twice a day and Aldactone 25 mg daily. PHYSICAL EXAMINATION: Blood pressure 113/70 with a heart in the 90s. LUNGS: Clear. HEART: Irregularly irregular. S1, S2, no S3, no rub. ABDOMEN: Soft, nontender. EXTREMITIES: With decreased edema and decreased scrotal edema. Lab data revealed BUN and creatinine 15 and 1.02. Potassium 4.2. He has lost about 0.5 kg since yesterday. IMPRESSION: 1. Symptoms of significant edema and scrotal edema, improving. 2. Atrial fibrillation, rate controlled on Eliquis. 3. Hypertension. 4. History of dementia. RECOMMENDATION: I will switch him to oral diuretics, increase his level of activity. If he remains stable, I expect he should be able to be discharged home in the next 24 to 48 hours.
--- NOTE | 2016-12-18 16:54 | PN ---
INTERVAL HISTORY: Patient continues to be hemodynamically stable, said that his urination is still ongoing aggressively. Patient did not complain of any sleep issues last night and said he got good night. at the bedside, who had multiple concerns and questions. All addressed at the bedside. Patient currently is denying chest pain, shortness breath, nausea, vomiting, abdominal pain, dizziness, lightheadedness, or blurry vision. His scrotal edema has subsided and he believes is less than 50% of the size when he presented to the hospital. PHYSICAL EXAMINATION: VITAL SIGNS: 96.6, 104, 18, 113/73 and saturation is 95% on room air. LUNGS: Diminished bilaterally. HEART: Normal S1, S2. ABDOMEN: Soft, no tenderness, positive bowel sounds in all 4 quadrants. LOWER EXTREMITIES: Stable edema from prior examination. SKIN: No new rash. PSYCH: Alert and oriented x3. IMAGING AND LABS: Sodium 136, normal kidney function and chemistry otherwise. ASSESSMENT AND PLAN: 1. Severe anasarca with acute diastolic heart failure exacerbation. Patient currently on Lasix 60 mg 3 times daily intravenously. Dose will be adjusted to 40 three times daily. I discussed the case with Dr. Birch from cardiology, who agreed with the current treatment plan and we would like to consider switching patient to oral Lasix based on clinical progress. Continue cardioprotective medication. Continue monitoring his I's and O's, daily weight and general condition. 2. Scrotal edema with the swelling improved. 3. Atrial fibrillation, heart rate is under good control. We will continue beta yennifer. Continue Eliquis at this point. 4. Benign prostatic hypertrophy. Will continue Flomax. 5. Hypertension, under fair control. 6. Mild dementia. Continue home medication. 7. Hyperlipidemia. Continue statin. 8. Discharge in the next 24 to 48 hours based on clinical progress.
[2016-12-18] MEDS: ATORVASTATIN 40 MG TAB PO SCH (21:04)
[2016-12-19 07:16] LABS: Anion Gap 8 mmol/L; Blood Urea Nitrogen 16 mg/dL (9-20); Calcium 8.8 mg/dL (8.4-10.2); Carbon Dioxide 34 mmol/L (22-30); Chloride 93 mmol/L (98-107); Glucose 97 mg/dL (74-99); Non-African American GFR(MDRD) >60 (>60 ml/min/1.73 sqM); Sodium 135 mmol/L (137-145)
[2016-12-19] MEDS: DONEPEZIL 10 MG TAB PO SCH (09:10)
[2016-12-19] MEDS: APIXABAN 5 MG TAB PO SCH (09:10)
[2016-12-19] MEDS: FAMOTIDINE 20 MG TAB PO SCH (09:11)
[2016-12-19] MEDS: FUROSEMIDE 20 MG TAB PO SCH (09:11)
[2016-12-19] MEDS: LISINOPRIL 5 MG TAB PO SCH (09:11)
[2016-12-19] MEDS: METOPROLOL TARTRATE 25 MG TAB PO SCH (09:12)
[2016-12-19] MEDS: MEMANTINE 10 MG TAB PO SCH (09:12)
[2016-12-19] MEDS: SPIRONOLACTONE 25 MG TAB PO SCH (09:12)
[2016-12-19] MEDS: CYANOCOBALAMIN 500 MCG TAB PO SCH (09:13)
[2016-12-19] MEDS: TAMSULOSIN 0.4 MG CAP.ER.24H PO SCH (09:13)
[2016-12-19 09:47] VITALS: TEMP 97.2
--- NOTE | 2016-12-19 11:48 | P.PN ---
Subjective Principal diagnosis: Pulmonary edema and anasarca This is a pleasant 76-year-old gentleman who follows regularly with Dr. Lombardi in the office has a known history of hypertension, dyslipidemia, CAD with stent placement to the RCA in 2012 as well as a lesion in the diagonal branch which is being managed medically. He also has a history of mild AR. Senna to the emergency department with complaints of increasing lower extremity, abdominal and scrotal edema. Weight gain of about 35 pounds in the last 4 weeks. He's also been complaining of increasing shortness of breath unable to lay flat and has been sleeping in a recliner. He has been having difficulties doing his regular activities such as climbing the stairs in his home which she has extremely short of breath with this time. Patient was hospitalized in [place] while on vacation about 6 weeks ago with complaints of chest discomfort which patient was told was related to his atrial fibrillation, these records are not available to me at this time. He's had no complaints of palpitations, dizziness. No recurrent episodes of chest discomfort since hospitalization in early October. Chest x-ray on admission shows new bilateral pleural effusions left greater than right and also evidence of mild interstitial pulmonary edema. EKG showed patient to be in atrial fibrillation which is chronic, heart rate in the 110s with occasional PVC. 12/15/2016 patient seen and examined this morning, his weight is down 1.5 kg from yesterday. Overall feeling much better. Continues to diurese well. BUN 16, creat 0.99. 12/19/2016 Patient seen and examined this morning, feeling much better overall. Plans being made for discharge home today. Edema continuing to improve. Patient has been educated regarding the importance of daily weights, and taking an extra diuretic if he notices a weight gain from one day to the next. He is currently on oral diuretics, blood pressure this morning 112/60. We will make him a follow-up appointment with Dr. Lombardi in the office post discharge. Objective - Vital Signs Vital signs: Vital Signs Temp 97.2 F L 12/19/16 08:55 Pulse 112 H 12/19/16 08:55 Resp 18 12/19/16 08:55 BP 112/67 12/19/16 08:55 Pulse Ox 97 12/19/16 08:55 Intake & Output 12/18/16 12/19/16 12/19/16 18:59 06:59 18:59 Intake Total 250 240 Balance 250 240 Weight 97.5 kg Intake: Oral 250 240 Other: Voiding Method Urinal Urinal # Voids 2 1 - Exam PHYSICAL EXAMINATION: HEENT: Head is atraumatic, normocephalic. Pupils equal, round. Neck is supple. There is no elevated jugular venous pressure. HEART EXAMINATION: Heart S1 and S2 irregularly irregular CHEST EXAMINATION: Lungs are clear to auscultation and precussion. No chest wall tenderness is noted on palpation or with deep breathing. ABDOMEN: Soft, mildly distended . Bowel sounds are heard. No organomegaly noted. EXTREMITIES: 1+ peripheral pulses with 1+ evidence of peripheral edema and no calf tenderness noted. Significant persistent scrotal edema, improved from admission NEUROLOGIC patient is awake, alert and oriented -3. . - Labs CBC & Chem 7: 12/15/16 06:03 12/19/16 06:26 Labs: Abnormal Lab Results - Last 24 Hours (Table) 12/19/16 Range/Units 06:26 Sodium 135 L (137-145) mmol/L Chloride 93 L (98-107) mmol/L Carbon Dioxide 34 H (22-30) mmol/L Assessment and Plan (1) Chronic a-fib Status: Acute (2) HTN (hypertension) Status: Acute (3) Hyperlipemia Status: Acute (4) Peripheral edema Status: Acute (5) Scrotal edema Status: Acute Plan: From cardiology's perspective, patient may be able to be discharged home today. We'll make him a follow-up appointment to see Dr. Lombardi in the office post discharge. He has been educated regarding the importance of daily weights, and taking an additional diuretic if his weight is up. He will also bring his documented weights to his follow-up appointment. DNP note has been reviewed, I agree with a documented findings and plan of care. Patient was seen and examined.
[2016-12-19 12:18] VITALS: BP 111/66; PULSE 89
--- NOTE | 2016-12-19 14:31 | P.DS ---
Providers Date of admission: 12/13/16 15:35 Expected date of discharge: 12/19/16 Attending physician: Yulia Mendez Consults: 12/13/16 15:35 Consult Physician Stat Consulting Provider: Chantal Roman Consult Reason/Comments: Pulmonary edema, anasarca Do you want consulting provider notified?: Yes Primary care physician: Shemar Keyon [place] [facility] Course: This is a pleasant 75-year-old gentleman patient of Dr. Ta. He has underlying history of chronic atrial fibrillation hypertension hyperlipidemia mesothelioma CAD with prior cardiac stents 3 years ago and TIA in May 2013 who presented to the hospital after he complained of significant shortness of breath, dyspnea on exertion, PND, increasing lower extremity edema, and scrotal enlargement with hydrocele, he was seen at the office approximately 4 weeks for the hydrocele and was seen by prior to admission and was sent back to the office as this is related to worsening anasarca and congestive heart failure. He was seen at the office today and was subsequently admitted to the hospital for CHF with anasarca. Patient denies any chest pain he has been using his recliner to lay down at night secondary to PND, patient denies any lightheadedness no dizziness no falls noted. He gained 35 pounds in 4 weeks, He was subsequently seen in the emergency room EKG shows atrial fibrillation which is chronic heart rate in the 110, occasional PVC, patient was started Cardizem drip 5 mg, he is chronically anticoagulated. ProBNP off 1090, last ejection fraction 55% patient was started on IV Lasix 40 mg every 8 hours 12/14, echocardiogram was performed this time, EF of 45-50%, right atrial pressure over 20, right ventricular systolic pressure of 38, mild pulmonary hypertension, mild MR and mild TR and mild thickening of aortic valve 12/15: Fluid balance is -1040. Weight is not accurate. TSH was normal at 2.350. Sodium 135 and chloride 97. GFR is greater than 60. Lower extremity edema is improved. Patient continues to have significant scrotal edema and this is to be elevated. Lisinopril decreased to 5 g twice daily to allow for Lasix increased to 60 mg every 8 hours. IV fluids to saline lock. 12/16: Weight is down almost 3 kg since admission. He has been afebrile. Heart rate running in the low 100s. Blood pressure is on the low side. Lasix is continued at 60 mg IV every 8 hours. Lower extremity edema is improving an [place] wrap in place. Patient continues to have scrotal edema. Patient's is requesting hospital bed and prescription left for case management to make arrangements. Anticipate patient will be here until Monday. 12/19: Patient is now on oral Lasix at 60 mg twice daily. Cardiology is cleared for discharge but concerned about elevated heart rate running in the low 100s. Metoprolol had been increased to 25 mg twice daily. Patient is to have close follow-up in the next couple of days. Patient will be discharged home today in stable condition. Discharge diagnoses: 1. Anasarca with acute diastolic heart failure. 2. Atrial fibrillation with rapid ventricular rate with history of chronic atrial fibrillation. 3. CAD with previous percutaneous intervention in the past 2012 4. Scrotal edema with hydrocele secondary to anasarca 5. BPH 6. Hypertension 7. Dementia 8. Hyperlipidemia Discharge plan: Home with home care on Monday. Hospital bed arranged by case management for heart failure. Impression and plan of care have been directed as dictated by the signing physician. Wen Raay nurse practitioner acting as scribe for signing physician. Patient Condition at Discharge: Good Plan - Discharge Summary New Discharge Prescriptions: New Furosemide [Lasix] 60 mg PO 0900,1700 #180 tab Metoprolol Tartrate [Lopressor] 25 mg PO BID #60 tab Spironolactone [Aldactone] 25 mg PO DAILY #30 tab Continue Enalapril [Vasotec] 5 mg PO BID Tamsulosin HCl [Flomax] 0.4 mg PO DAILY #42 cap Memantine [Namenda] 10 mg PO BID Donepezil HCl [Aricept] 10 mg PO BID Ubidecarenone [Co Q-10] 100 mg PO DAILY Cyanocobalamin (Vitamin B-12) [Vitamin B12] 2,500 mcg PO DAILY Calcium/Magnesium/Zinc [Meyvlgm-Vyprmsfsv-Jzzp Tablet] 1 tab PO DAILY Aspirin 81 mg PO DAILY #30 chewable Atorvastatin [Lipitor] 40 mg PO HS #30 tab Apixaban [Eliquis] 5 mg PO BID [place]-3/Dha/Epa/Fish Oil [Fish Oil 1,000 mg Softgel] 1 cap PO DAILY Vit A/Vit C/Vit E/Zinc/Copper [ICAPS SOFTGEL] 1 cap PO DAILY Turmeric/Turmeric Root Extract [Turmeric 450-50 mg Capsule] 1 cap PO DAILY Biotin 5 mg PO DAILY Discontinued amLODIPine [Norvasc] 5 mg PO DAILY Metoprolol Tartrate [Lopressor] 12.5 mg PO BID #60 tab Discharge Medication List Enalapril [Vasotec] 5 mg PO BID 01/20/14 [History] Tamsulosin HCl [Flomax] 0.4 mg PO DAILY #42 cap 01/20/14 [Rx] Calcium/Magnesium/Zinc [Fqhrapp-Qwgmzumyz-Wihq Tablet] 1 tab PO DAILY 03/13/16 [ History] Cyanocobalamin (Vitamin B-12) [Vitamin B12] 2,500 mcg PO DAILY 03/13/16 [History ] Donepezil HCl [Aricept] 10 mg PO BID 03/13/16 [History] Memantine [Namenda] 10 mg PO BID 03/13/16 [History] Ubidecarenone [Co Q-10] 100 mg PO DAILY 03/13/16 [History] Aspirin 81 mg PO DAILY #30 chewable 03/15/16 [Rx] Atorvastatin [Lipitor] 40 mg PO HS #30 tab 03/15/16 [Rx] Apixaban [Eliquis] 5 mg PO BID 03/31/16 [History] Biotin 5 mg PO DAILY 12/13/16 [History] [place]-3/Dha/Epa/Fish Oil [Fish Oil 1,000 mg Softgel] 1 cap PO DAILY 12/13/16 [ History] Turmeric/Turmeric Root Extract [Turmeric 450-50 mg Capsule] 1 cap PO DAILY 12/13 [History] Vit A/Vit C/Vit E/Zinc/Copper [ICAPS SOFTGEL] 1 cap PO DAILY 12/13/16 [History] Furosemide [Lasix] 60 mg PO 0900,1700 #180 tab 12/19/16 [Rx] Metoprolol Tartrate [Lopressor] 25 mg PO BID #60 tab 12/19/16 [Rx] Spironolactone [Aldactone] 25 mg PO DAILY #30 tab 12/19/16 [Rx] Follow up Appointment(s)/Referral(s): Shemar Ta MD [Primary Care Provider] - 12/22/16 11:00 am [facility] [NON-STAFF] - Steven Lombardi MD [STAFF PHYSICIAN] - 12/27/16 3:30 pm Patient Instructions/Handouts: Heart Failure (DC) Activity/Diet/Wound Care/Special Instructions: [facility] - [phone] Discharge Disposition: HOME WITH HOME HEALTH SERVICES
== END 2016-12-19 12:27 | disposition home health service (06) | DRG 292 ==
LOC: EC 12:44 → 6SEL 15:35
PROVIDERS: ADMIT Family Medicine; ATTEND Family Medicine
DX: I11.0 Hypertensive heart disease with heart failure (principal); J81.1 Chronic pulmonary edema; I27.2 Other secondary pulmonary hypertension; F03.90 Unspecified dementia, unspecified severity, without behavioral disturbance, psychotic disturbance, mood disturbance, and anxiety; E78.5 Hyperlipidemia, unspecified; I50.33 Acute on chronic diastolic (congestive) heart failure; F43.10 Post-traumatic stress disorder, unspecified; I25.10 Atherosclerotic heart disease of native coronary artery without angina pectoris; I48.2 Chronic atrial fibrillation; I49.3 Ventricular premature depolarization; N40.0 Benign prostatic hyperplasia without lower urinary tract symptoms; N43.3 Hydrocele, unspecified; Z79.01 Long term (current) use of anticoagulants; Z79.82 Long term (current) use of aspirin; Z79.899 Other long term (current) drug therapy; Z82.49 Family history of ischemic heart disease and other diseases of the circulatory system; Z86.73 Personal history of transient ischemic attack (TIA), and cerebral infarction without residual deficits; Z87.891 Personal history of nicotine dependence; Z95.5 Presence of coronary angioplasty implant and graft
CPT/HCPCS: 36415; 71020; 80048; 80053; 82550; 82553; 82803; 83735; 83880; 84443; 84484; 85025; 85027; 85610; 85730; 93005; 93306; 96365; 96366; 96375; 99285

== ENCOUNTER 2016-12-22 19:12 | Emergency (ER) | payer MEDICARE, OTHER ==
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
[2016-12-22] MEDS: SODIUM CHLORIDE 0.9% 500 ML IV STA ×2 (19:30→20:17)
[2016-12-22 19:41] LABS: Basophils % (A) 1 %; CH 26.9; CHCM 31.1; Eosinophils # (A) 0.1 k/uL (0-0.7); Eosinophils % (A) 2 %; HCT 41.6 % (39.0-53.0); HGB 12.6 gm/dL (13.0-17.5); Hypochromasia Marked; Luc # (Auto) 0.18; Luc % (Auto) 3; Lymphocytes # (A) 0.7 k/uL (1.0-4.8); Lymphocytes % (A) 11 %; MCH 26.4 pg (25.0-35.0); MCHC 30.4 g/dL (31.0-37.0); MCV 86.9 fL (80.0-100.0); Mean Platelet Volume 8.4; Monocytes # (A) 0.5 k/uL (0-1.0); Monocytes % (A) 9 %; Neutrophils # (A) 4.6 k/uL (1.3-7.7); Neutrophils % (A) 75 %; RBC 4.79 m/uL (4.30-5.90); RDW 15.7 % (11.5-15.5); WBC 6.2 k/uL (3.8-10.6); WBC (Perox) 6.73
[2016-12-22 19:56] LABS: ALT 41 U/L (21-72); AST 38 U/L (17-59); Alkaline Phosphatase 127 U/L (38-126); Anion Gap 10 mmol/L; Blood Urea Nitrogen 22 mg/dL (9-20); Calcium 8.6 mg/dL (8.4-10.2); Carbon Dioxide 25 mmol/L (22-30); Chloride 94 mmol/L (98-107); Glucose 143 mg/dL (74-99); Non-African American GFR(MDRD) 53 (>60 ml/min/1.73 sqM); Potassium 4.3 mmol/L (3.5-5.1); Sodium 129 mmol/L (137-145); Total Bilirubin 0.9 mg/dL (0.2-1.3); Total Protein 6.2 g/dL (6.3-8.2)
--- NOTE | 2016-12-22 20:10 | XR ---
EXAMINATION TYPE: XR chest 2V DATE OF EXAM: 12/22/2016 COMPARISON: 12/13/2016 HISTORY: Confusion. Edema. Cough. TECHNIQUE: Frontal and lateral views of the chest are obtained. FINDINGS: There is no heart failure. There is patchy infiltrate at the left lung base. There is blun ting of the costophrenic angles. Heart is probably enlarged. There are chest leads. Bony thorax is in tact. IMPRESSION: Bilateral pleural effusions. Left lower lobe pulmonary infiltrate. No gross heart failur e. Pleural fluid is probably improved slightly compared to old exam.
[2016-12-22 20:14] LABS: Creatine Kinase MB 0.9 ng/mL (0.0-2.4)
[2016-12-22] MEDS ORDERED: SODIUM CHLORIDE 0.9% 1,000 ML IV STA (20:53)
[2016-12-22 22:11] LABS: Appearance,Urine Clear (Clear); Bacteria,Urine Rare /hpf; Bilirubin,Urine Negative (Negative); Glucose,Urine (UA) Negative (Negative); Granular Casts,Urine 12 /lpf (0); Ketones,Urine Negative (Negative); Leukocyte Esterase,Urine Negative (Negative); Mucus,Urine Rare /hpf; Nitrite,Urine Negative (Negative); PH, Urine 6.5 (5.0-8.0); Particle Count 5253; Protein,Urine 2+ (Negative); RBC,Urine 1 /hpf (0-5); Specific Gravity,Urine 1.009 (1.001-1.035); UA Billing (MACRO vs. MICRO) MICRO; WBC,Urine 2 /hpf (0-5)
[2016-12-22] MEDS ORDERED: MIDODRINE 5 MG TAB PO STA (23:28)
[2016-12-23 01:21] VITALS: BP 110/74; PULSE 97; RESP 20; TEMP 97.9
== END 2016-12-23 01:00 | disposition home or self-care (01) ==
LOC: EC 19:12
DX: I11.0 Hypertensive heart disease with heart failure (principal); I50.9 Heart failure, unspecified; I95.9 Hypotension, unspecified; E78.5 Hyperlipidemia, unspecified; Z86.73 Personal history of transient ischemic attack (TIA), and cerebral infarction without residual deficits; Z95.5 Presence of coronary angioplasty implant and graft; Z87.891 Personal history of nicotine dependence; Z79.02 Long term (current) use of antithrombotics/antiplatelets; Z79.899 Other long term (current) drug therapy
CPT/HCPCS: 36415; 71020; 80053; 81001; 82550; 82553; 83605; 83735; 83880; 85025; 87040; 93005; 96360; 96361; 99284

== ENCOUNTER 2017-01-05 11:14 | Inpatient (IN) | payer MEDICARE, OTHER ==
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
[2017-01-05 12:21] LABS: CHCM 33.3; Eosinophils % (A) 1 %
[2017-01-05 12:30] LABS: Basophils % (A) 1 %; CH 25.9; Eosinophils # (A) 0.1 k/uL (0-0.7); HCT 38.6 % (39.0-53.0); HDW 3.26; HGB 13.1 gm/dL (13.0-17.5); Luc # (Auto) 0.19; Luc % (Auto) 3; Lymphocytes # (A) 0.7 k/uL (1.0-4.8); Lymphocytes % (A) 11 %; MCH 26.4 pg (25.0-35.0); MCHC 33.9 g/dL (31.0-37.0); Mean Platelet Volume 7.3; Monocytes # (A) 0.6 k/uL (0-1.0); Monocytes % (A) 9 %; Neutrophils # (A) 4.7 k/uL (1.3-7.7); Neutrophils % (A) 75 %; RBC 4.96 m/uL (4.30-5.90); WBC 6.2 k/uL (3.8-10.6); WBC (Perox) 6.33
[2017-01-05 12:32] LABS: ALT 50 U/L (21-72); AST 34 U/L (17-59); Alkaline Phosphatase 140 U/L (38-126); Anion Gap 10 mmol/L; Blood Urea Nitrogen 27 mg/dL (9-20); Calcium 8.9 mg/dL (8.4-10.2); Carbon Dioxide 32 mmol/L (22-30); Glucose 119 mg/dL (74-99); MCV 77.9 fL (80.0-100.0); Magnesium 1.8 mg/dL (1.6-2.3); Non-African American GFR(MDRD) 59 (>60 ml/min/1.73 sqM); Sodium 121 mmol/L (137-145); Total Bilirubin 1.2 mg/dL (0.2-1.3); Total Protein 6.4 g/dL (6.3-8.2)
[2017-01-05 12:37] LABS: Creatine Kinase 58 U/L (55-170)
[2017-01-05 12:38] LABS: INR 1.4 (<1.1); Partial Thromboplastin Time 27.7 sec (22.0-30.0); Prothrombin Time 13.9 sec (9.0-12.0)
[2017-01-05 12:51] LABS: Creatine Kinase MB 0.7 ng/mL (0.0-2.4); Troponin I <0.012 ng/mL (0.000-0.034)
--- NOTE | 2017-01-05 12:51 | CT ---
EXAMINATION TYPE: CT brain wo con DATE OF EXAM: 01/05/2017 COMPARISON: 03/13/2016 HISTORY: Patient complains of low blood pressure, dizziness, and weakness. CT DLP: [address] of the brain was performed. The ventricles, basal cisterns and sulci overlying the cerebral convexities demonstrate mild enlargem ent. There is no evidence for intracranial hemorrhage or sulcal effacement. There is moderate decreased attenuation about the periventricular white matter and deep white matter of both cerebral hemispheres, compatible with chronic small vessel ischemia. Differential diagnosis d oes include demyelination. No mass effects are seen.No midline shift. Osseous calvarium is intact. If symptoms persist consider MRI. IMPRESSION: 1. Age related atrophic and chronic small vessel ischemic change without acute intracranial process s een at this time.
--- NOTE | 2017-01-05 12:55 | XR ---
EXAMINATION TYPE: XR chest 2V DATE OF EXAM: 01/05/2017 HISTORY: Weakness. REFERENCE: Previous study dated 12/22/2016. FINDINGS: There is a stable left-sided effusion and a smaller right-sided effusion. The lungs are kelly ar. Pleural spaces are clear. The heart is not enlarged. IMPRESSION: STABLE, BILATERAL EFFUSIONS.
[2017-01-05 12:58] LABS: Chloride 79 mmol/L (98-107)
[2017-01-05 14:02] LABS: Appearance,Urine Clear (Clear); Bilirubin,Urine Negative (Negative); Glucose,Urine (UA) Negative (Negative); Ketones,Urine Negative (Negative); Leukocyte Esterase,Urine Negative (Negative); Nitrite,Urine Negative (Negative); Protein,Urine Negative (Negative); Specific Gravity,Urine 1.004 (1.001-1.035); UA Billing (MACRO vs. MICRO) CHEM; Urobilinogen,Urine <2.0 mg/dL (<2.0)
[2017-01-05] MEDS ORDERED: NALOXONE 0.4 MG/ML 1 ML VIAL IV PRN (15:28)
[2017-01-05] MEDS ORDERED: POTASSIUM CHLORIDE ER 20 MEQ TAB.ER PO STA ×2 (15:30→20:32)
[2017-01-05] MEDS: SODIUM CHLORIDE 0.9% 1,000 ML IV SCH (16:11)
[2017-01-05] MEDS: DONEPEZIL 10 MG TAB PO SCH (21:01)
[2017-01-05] MEDS: POTASSIUM CHLORIDE ER 20 MEQ TAB.ER PO SCH (21:01)
[2017-01-05] MEDS: MEMANTINE 10 MG TAB PO SCH (21:01)
[2017-01-05] MEDS: APIXABAN 5 MG TAB PO SCH (21:01)
[2017-01-05] MEDS: METOPROLOL TARTRATE 25 MG TAB PO SCH (21:01)
[2017-01-05] MEDS: ATORVASTATIN 40 MG TAB PO SCH (21:01)
[2017-01-06] MEDS ORDERED: POTASSIUM CHLORIDE ER 20 MEQ TAB.ER PO ONE
[2017-01-06 06:30] LABS: Anion Gap 9 mmol/L; Blood Urea Nitrogen 27 mg/dL (9-20); Calcium 8.8 mg/dL (8.4-10.2); Carbon Dioxide 33 mmol/L (22-30); Chloride 83 mmol/L (98-107); Glucose 98 mg/dL (74-99); Non-African American GFR(MDRD) >60 (>60 ml/min/1.73 sqM); Potassium 3.7 mmol/L (3.5-5.1); Sodium 125 mmol/L (137-145)
[2017-01-06] MEDS ORDERED: MIDODRINE 5 MG TAB PO SCH ×2 (07:30→12:30)
[2017-01-06] MEDS ORDERED: NON-FORMULARY DRUG (Biotin [Biotin] 5 MG) PO SCH (09:00)
[2017-01-06] MEDS ORDERED: SPIRONOLACTONE 25 MG TAB PO SCH (09:00)
[2017-01-06] MEDS: APIXABAN 5 MG TAB PO SCH ×2 (09:10→21:33)
[2017-01-06] MEDS: ASPIRIN 81 MG CHEW PO SCH (09:10)
[2017-01-06] MEDS: CALCIUM CARBONATE 500 MG CHEWABLE PO SCH (09:10)
[2017-01-06] MEDS: FUROSEMIDE 40 MG TAB PO SCH (09:11)
[2017-01-06] MEDS: DONEPEZIL 10 MG TAB PO SCH ×2 (09:11→21:32)
[2017-01-06] MEDS: MEMANTINE 10 MG TAB PO SCH ×2 (09:12→21:32)
[2017-01-06] MEDS: POTASSIUM CHLORIDE ER 20 MEQ TAB.ER PO SCH ×2 (09:12→21:32)
[2017-01-06] MEDS: METOPROLOL TARTRATE 25 MG TAB PO SCH ×3 (09:12→21:33)
[2017-01-06] MEDS: TAMSULOSIN 0.4 MG CAP.ER.24H PO SCH (09:12)
[2017-01-06] MEDS ORDERED: POLYETHYLENE GLYCOL 3350 17 GM POWD.PACK PO STA (11:12)
[2017-01-06] MEDS: CYANOCOBALAMIN 500 MCG TAB PO SCH (11:15)
[2017-01-06] MEDS: LISINOPRIL 2.5 MG TAB PO SCH (11:19)
[2017-01-06] MEDS: SODIUM CHLORIDE 0.9% 1,000 ML IV SCH (11:51)
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
[2017-01-06] MEDS: ATORVASTATIN 40 MG TAB PO SCH (21:33)
[2017-01-07 05:58] LABS: ALT 51 U/L (21-72); AST 39 U/L (17-59); Alkaline Phosphatase 141 U/L (38-126); Anion Gap 9 mmol/L; Blood Urea Nitrogen 22 mg/dL (9-20); Carbon Dioxide 31 mmol/L (22-30); Chloride 88 mmol/L (98-107); Glucose 95 mg/dL (74-99); Non-African American GFR(MDRD) >60 (>60 ml/min/1.73 sqM); Potassium 4.1 mmol/L (3.5-5.1); Sodium 128 mmol/L (137-145); Total Bilirubin 1.5 mg/dL (0.2-1.3); Total Protein 6.6 g/dL (6.3-8.2)
[2017-01-07 06:04] LABS: Basophils % (A) 1 %; CH 25.7; CHCM 31.8; Eosinophils # (A) 0.1 k/uL (0-0.7); Eosinophils % (A) 1 %; HCT 40.4 % (39.0-53.0); HDW 3.22; HGB 13.2 gm/dL (13.0-17.5); Hypochromasia Slight; Luc # (Auto) 0.16; Luc % (Auto) 3; Lymphocytes # (A) 0.9 k/uL (1.0-4.8); Lymphocytes % (A) 16 %; MCH 26.3 pg (25.0-35.0); MCHC 32.5 g/dL (31.0-37.0); MCV 80.9 fL (80.0-100.0); Mean Platelet Volume 7.2; Monocytes # (A) 0.6 k/uL (0-1.0); Monocytes % (A) 11 %; Neutrophils # (A) 3.8 k/uL (1.3-7.7); Neutrophils % (A) 69 %; RDW 15.3 % (11.5-15.5); WBC 5.5 k/uL (3.8-10.6); WBC (Perox) 5.76
[2017-01-07] MEDS: APIXABAN 5 MG TAB PO SCH ×2 (08:54→19:55)
[2017-01-07] MEDS: ASPIRIN 81 MG CHEW PO SCH (08:54)
[2017-01-07] MEDS: SODIUM CHLORIDE 0.9% 1,000 ML IV SCH (08:54)
[2017-01-07] MEDS: DONEPEZIL 10 MG TAB PO SCH ×2 (08:55→19:55)
[2017-01-07] MEDS: FUROSEMIDE 40 MG TAB PO SCH (08:55)
[2017-01-07] MEDS: LISINOPRIL 2.5 MG TAB PO SCH (08:55)
[2017-01-07] MEDS: CALCIUM CARBONATE 500 MG CHEWABLE PO SCH (08:55)
[2017-01-07] MEDS: MEMANTINE 10 MG TAB PO SCH ×2 (08:56→19:55)
[2017-01-07] MEDS: METOPROLOL TARTRATE 25 MG TAB PO SCH ×2 (08:56→17:30)
[2017-01-07] MEDS: POTASSIUM CHLORIDE ER 20 MEQ TAB.ER PO SCH ×2 (08:56→19:55)
[2017-01-07] MEDS: TAMSULOSIN 0.4 MG CAP.ER.24H PO SCH (08:56)
--- NOTE | 2017-01-07 11:29 | P.DS ---
Providers Date of admission: 01/05/17 15:28 Attending physician: Yulia Mendez Consults: 01/05/17 15:28 Consult Physician Urgent Consulting Provider: Jose E Ag Consult Reason/Comments: Recent CHF, hyponatremia Do you want consulting provider notified?: Yes Primary care physician: Shemar Ta [facility] Course: This is a pleasant 75-year-old gentleman patient of Dr. Ta. He has underlying history of chronic atrial fibrillation hypertension hyperlipidemia mesothelioma CAD with prior cardiac stents 3 years ago and TIA in May 2013 who presented to the hospital last admission 12/14/2016 after he complained of significant shortness of breath, dyspnea on exertion, PND, increasing lower extremity edema, and scrotal enlargement with hydrocele, he was seen at the office approximately 4 weeks for the hydrocele and was seen by prior to admission and was sent back to the office as this is related to worsening anasarca and congestive heart failure. He was seen at the office today and was subsequently admitted to the hospital for CHF with anasarca. Patient denies any chest pain he has been using his recliner to lay down at night secondary to PND, patient denies any lightheadedness no dizziness no falls noted. He gained 35 pounds in 4 weeks, EKG shows atrial fibrillation which is chronic heart rate in the 110, occasional PVC, patient was started Cardizem drip 5 mg, he is chronically anticoagulated. ProBNP off 1090, last ejection fraction 55% patient was started on IV Lasix 40 mg every 8 hours,12/14, echocardiogram was performed this time, EF of 45-50%, right atrial pressure over 20, right ventricular systolic pressure of 38, mild pulmonary hypertension, mild MR and mild TR and mild thickening of aortic valve He was discharged to home from his last admission, and was seen by Dr. Ta for routine hospital follow-up, and at that time. He had lost 32 pounds, he was started on Midodrin to take with this Lasix, no other medication changes were made, he was admitted to the emergency room this time secondary to lightheadedness and dizziness with orthostasis, his anasarca has resolved however he has hypotension and when seen in the emergency room blood pressure was 84 systolic, home VNA near his blood pressure was 95 systolic, patient complains of dizziness and weakness, patient denies any fever no chills no other neurologic symptoms. Patient currently is being gently hydrated, and Lasix was held and restarted today at 25% of this dosage normally takes 80 mg in the morning and 60 mg in the evening, enalapril has decreased to 2.5 mg and would be held for low blood pressure, but the stasis and emesis will be followed consult were made with cardiology 01/07: Sodium has improved to 128, CT of the head shows age-related atrophic and chronic small vessel ischemic change without acute intracranial process. Chest x-ray shows bilateral stable effusions. Aldactone and Midodrin still held. Blood pressure has stabilized, he'll be discharged home with follow-up with cardiology and PCP. Discharge diagnoses 1. Lightheadedness dizziness secondary to hypotension 2 Resolved Anasarca with congestive heart failure mainly diastolic component, last ejection fraction 55%, 2. Atrial fibrillation 3. CAD with previous percutaneous intervention in the past 4. Resolved severe Scrotal edema with hydrocele secondary to anasarca 5.BPH without any lower tract symptomatology 6. Hypertension 7. Dementia 8. Hyperlipidemia 9. Impaired endurance and mobility patient was seen by physical therapy The above impression and plan of care have been discussed and directed by signing physician. Jossy Meade nurse practitioner acting as scribe for signing physician. Patient Condition at Discharge: Stable Plan - Discharge Summary New Discharge Prescriptions: No Action Enalapril [Vasotec] 5 mg PO BID Tamsulosin HCl [Flomax] 0.4 mg PO DAILY #42 cap Memantine [Namenda] 10 mg PO BID Donepezil HCl [Aricept] 10 mg PO BID Ubidecarenone [Co Q-10] 100 mg PO DAILY Cyanocobalamin (Vitamin B-12) [Vitamin B12] 2,500 mcg PO DAILY Calcium/Magnesium/Zinc [Iqcfqtr-Xfdwludtn-Qicn Tablet] 1 tab PO DAILY Aspirin 81 mg PO DAILY #30 chewable Atorvastatin [Lipitor] 40 mg PO HS #30 tab Apixaban [Eliquis] 5 mg PO BID [place]-3/Dha/Epa/Fish Oil [Fish Oil] 1 cap PO DAILY Vit A/Vit C/Vit E/Zinc/Copper [ICAPS SOFTGEL] 1 cap PO DAILY Turmeric/Turmeric Root Extract [Turmeric 450-50 mg Capsule] 1 cap PO DAILY Biotin 5 mg PO DAILY Spironolactone [Aldactone] 25 mg PO DAILY #30 tab Metoprolol Tartrate [Lopressor] 25 mg PO TID Furosemide [Lasix] 60 mg PO HS Furosemide [Lasix] 80 mg PO QAM Midodrine [ProAmatine] 2.5 mg PO BID #30 tablet Discharge Medication List Enalapril [Vasotec] 5 mg PO BID 01/20/14 [History] Tamsulosin HCl [Flomax] 0.4 mg PO DAILY #42 cap 01/20/14 [Rx] Calcium/Magnesium/Zinc [Gxdotwr-Alrrodgad-Femz Tablet] 1 tab PO DAILY 03/13/16 [ History] Cyanocobalamin (Vitamin B-12) [Vitamin B12] 2,500 mcg PO DAILY 03/13/16 [History ] Donepezil HCl [Aricept] 10 mg PO BID 03/13/16 [History] Memantine [Namenda] 10 mg PO BID 03/13/16 [History] Ubidecarenone [Co Q-10] 100 mg PO DAILY 03/13/16 [History] Aspirin 81 mg PO DAILY #30 chewable 03/15/16 [Rx] Atorvastatin [Lipitor] 40 mg PO HS #30 tab 03/15/16 [Rx] Apixaban [Eliquis] 5 mg PO BID 03/31/16 [History] Biotin 5 mg PO DAILY 12/13/16 [History] [place]-3/Dha/Epa/Fish Oil [Fish Oil] 1 cap PO DAILY 12/13/16 [History] Turmeric/Turmeric Root Extract [Turmeric 450-50 mg Capsule] 1 cap PO DAILY 12/13 [History] Vit A/Vit C/Vit E/Zinc/Copper [ICAPS SOFTGEL] 1 cap PO DAILY 12/13/16 [History] Spironolactone [Aldactone] 25 mg PO DAILY #30 tab 12/19/16 [Rx] Furosemide [Lasix] 60 mg PO HS 12/22/16 [History] Furosemide [Lasix] 80 mg PO QAM 12/22/16 [History] Metoprolol Tartrate [Lopressor] 25 mg PO TID 12/22/16 [History] Midodrine [ProAmatine] 2.5 mg PO BID #30 tablet 12/23/16 [Rx] Follow up Appointment(s)/Referral(s): Shemar Ta MD [Primary Care Provider] - 1-2 days [facility], [NON-STAFF] -
[2017-01-07] MEDS: CYANOCOBALAMIN 500 MCG TAB PO SCH (11:54)
[2017-01-07] MEDS ORDERED: SPIRONOLACTONE 25 MG TAB PO SCH ×2 (12:00→12:30)
--- NOTE | 2017-01-07 14:05 | P.PN ---
Subjective This is a 76-year-old gentleman who follows regularly with Dr. Howe in the office. He has a known history of hypertension, hyperlipidemia, coronary artery disease with stent placement to the RCA in 2012 as well as a lesion in the diagonal branch which is being managed medically. He has history of mild aortic regurgitation, chronic persistent atrial fibrillation, on Eliquis dementia, prior CVA, who was brought to the hospital by his because of symptoms of dizziness and lightheadedness with near-syncope. Checked his blood pressure at home which was noted to be quite low and for this reason she brought him to the emergency room for further evaluation. Patient did have a recent admission to the hospital in December with exacerbation of congestive cardiac failure, and had one subsequent ER visit because of mental status changes. Blood pressure on arrival here 94/50 with a heart rate in the 60s. 100% on room air. Blood pressure this morning 97/60 with a heart rate in the 90s, 96% on room air. CBC normal, sodium 121 on admission, 125 this morning, potassium 3.9 on admission, 3.7 this morning. BUN 27, creatinine 1.1. Magnesium 1.8, alkaline phosphatase 140. ALT and AST normal, troponin 0.012. TSH 0.696, free T4 1 0.27. EKG shows atrial fibrillation with a controlled ventricular response. CT of the brain reveals age-related atrophic and chronic small vessel change. Chest x-ray revealed stable bilateral effusions. At the time of my examination this morning, he is sitting up in the chair eating lunch , his is at the bedside. He is pleasantly confused, denies any chest pain dizziness lightheadedness at present. 01/07/2017 Patient seen and examined this morning, sitting up in the chair at bedside. Denies any dizziness or lightheadedness. Positive orthostasis noted. We will hold his diuretics today, discontinue ANTHONY inhibitor, discontinue aspirin. Continue to monitor orthostatics. If the patient is stable possibly discharge home in the morning. Objective - Vital Signs Vital signs: Vital Signs Temp 96.9 F L 01/07/17 11:50 Pulse 78 01/07/17 11:50 Resp 16 01/07/17 11:50 BP 97/56 01/07/17 11:50 Pulse Ox 98 01/07/17 11:50 Intake & Output 01/06/17 01/07/1717 18:59 06:59 18:59 Intake Total 720 250 180 Output Total 400 250 Balance 320 250 -70 Weight 86.5 kg Intake: Intake, IV Titration 250 Amount Sodium Chloride 0.9% 1, 250 000 ml @ 50 mls/hr IV . Q20H [facility] Rx#:[id number] Oral 720 180 Output: Urine 400 250 Other: # Voids 1 1 # Bowel Movements 1 - Exam PHYSICAL EXAMINATION: HEENT: Head is atraumatic, normocephalic. Pupils equal, round. Neck is supple. There is no elevated jugular venous pressure. HEART EXAMINATION: Heart S1 and S2 irregularly irregular CHEST EXAMINATION: Lungs are clear to auscultation and precussion. No chest wall tenderness is noted on palpation or with deep breathing. ABDOMEN: Soft, nontender. Bowel sounds are heard. No organomegaly noted. EXTREMITIES: 2+ peripheral pulses with no evidence of peripheral edema and no calf tenderness noted. NEUROLOGIC [patient is awake, alert and confused. - Labs CBC & Chem 7: 01/07/17 05:29 01/07/17 05:29 Labs: Abnormal Lab Results - Last 24 Hours (Table) 01/07/17 01/07/17 Range/Units 05:29 05:29 Lymphocytes # 0.9 L (1.0-4.8) k/uL Sodium 128 L (137-145) mmol/L Chloride 88 L (98-107) mmol/L Carbon Dioxide 31 H (22-30) mmol/L BUN 22 H (9-20) mg/dL Total Bilirubin 1.5 H (0.2-1.3) mg/dL Alkaline Phosphatase 141 H (38-126) U/L Assessment and Plan Plan: Assessment and plan #1 symptoms of dizziness and lightheadedness with near-syncope. Blood pressure on arrival 90 systolic. EKG shows atrial fibrillation with a controlled ventricular response. #2 chronic persistent atrial fibrillation on Eliquis. #3 prior CVA #4 hypertension # 5 hyperlipidemia #6 coronary artery disease with stent placement to the RCA in 2012, patient also was noted to have a diagonal branch lesion medically managed. #7 dementia #8 hyponatremia Plan We will hold the diuretics, discontinue the ANTHONY inhibitor and discontinue the aspirin. Check lytes BUN and creatinine in the morning. Continue to check orthostatic blood pressure and heart rate. Plan for possible discharge home in the morning if stable DNP note has been reviewed, I agree with a documented findings and plan of care. Patient was seen and examined.
[2017-01-07 19:53] VITALS: RESP 18
[2017-01-07] MEDS: ATORVASTATIN 40 MG TAB PO SCH (19:55)
[2017-01-08] MEDS: METOPROLOL TARTRATE 25 MG TAB PO SCH ×2 (00:03→10:09)
[2017-01-08] MEDS: SODIUM CHLORIDE 0.9% 1,000 ML IV SCH (05:26)
[2017-01-08 06:12] LABS: Basophils % (A) 1 %; CH 25.9; CHCM 32.1; Eosinophils # (A) 0.1 k/uL (0-0.7); Eosinophils % (A) 1 %; HCT 37.8 % (39.0-53.0); HDW 3.15; HGB 12.4 gm/dL (13.0-17.5); Hypochromasia Slight; Luc # (Auto) 0.15; Luc % (Auto) 2; Lymphocytes # (A) 0.9 k/uL (1.0-4.8); Lymphocytes % (A) 13 %; MCH 26.6 pg (25.0-35.0); MCHC 32.9 g/dL (31.0-37.0); Mean Platelet Volume 7.3; Monocytes # (A) 0.7 k/uL (0-1.0); Monocytes % (A) 11 %; Neutrophils # (A) 4.8 k/uL (1.3-7.7); Neutrophils % (A) 72 %; RBC 4.66 m/uL (4.30-5.90); RDW 15.2 % (11.5-15.5); WBC 6.6 k/uL (3.8-10.6); WBC (Perox) 6.09
[2017-01-08 06:29] LABS: ALT 55 U/L (21-72); AST 33 U/L (17-59); Alkaline Phosphatase 135 U/L (38-126); Anion Gap 9 mmol/L; Blood Urea Nitrogen 22 mg/dL (9-20); Calcium 8.7 mg/dL (8.4-10.2); Carbon Dioxide 29 mmol/L (22-30); Chloride 93 mmol/L (98-107); Glucose 100 mg/dL (74-99); Non-African American GFR(MDRD) >60 (>60 ml/min/1.73 sqM); Potassium 3.7 mmol/L (3.5-5.1); Sodium 131 mmol/L (137-145); Total Protein 6.1 g/dL (6.3-8.2)
[2017-01-08] MEDS: APIXABAN 5 MG TAB PO SCH (10:07)
[2017-01-08] MEDS: MEMANTINE 10 MG TAB PO SCH (10:08)
[2017-01-08] MEDS: DONEPEZIL 10 MG TAB PO SCH (10:08)
[2017-01-08] MEDS: CALCIUM CARBONATE 500 MG CHEWABLE PO SCH (10:08)
[2017-01-08] MEDS: TAMSULOSIN 0.4 MG CAP.ER.24H PO SCH (10:09)
[2017-01-08] MEDS: CYANOCOBALAMIN 500 MCG TAB PO SCH (10:10)
[2017-01-08 10:35] VITALS: BP 95/54; PULSE 104; TEMP 97
--- NOTE | 2017-01-08 11:15 | P.PN ---
Subjective This is a pleasant 75-year-old gentleman patient of Dr. Ta. He has underlying history of chronic atrial fibrillation hypertension hyperlipidemia mesothelioma CAD with prior cardiac stents 3 years ago and TIA in May 2013 who presented to the hospital last admission 12/14/2016 after he complained of significant shortness of breath, dyspnea on exertion, PND, increasing lower extremity edema, and scrotal enlargement with hydrocele, he was seen at the office approximately 4 weeks for the hydrocele and was seen by prior to admission and was sent back to the office as this is related to worsening anasarca and congestive heart failure. He was seen at the office today and was subsequently admitted to the hospital for CHF with anasarca. Patient denies any chest pain he has been using his recliner to lay down at night secondary to PND, patient denies any lightheadedness no dizziness no falls noted. He gained 35 pounds in 4 weeks, EKG shows atrial fibrillation which is chronic heart rate in the 110, occasional PVC, patient was started Cardizem drip 5 mg, he is chronically anticoagulated. ProBNP off 1090, last ejection fraction 55% patient was started on IV Lasix 40 mg every 8 hours,12/14, echocardiogram was performed this time, EF of 45-50%, right atrial pressure over 20, right ventricular systolic pressure of 38, mild pulmonary hypertension, mild MR and mild TR and mild thickening of aortic valve He was discharged to home from his last admission, and was seen by Dr. Ta for routine hospital follow-up, and at that time. He had lost 32 pounds, he was started on Midodrin to take with this Lasix, no other medication changes were made, he was admitted to the emergency room this time secondary to lightheadedness and dizziness with orthostasis, his anasarca has resolved however he has hypotension and when seen in the emergency room blood pressure was 84 systolic, home VNA near his blood pressure was 95 systolic, patient complains of dizziness and weakness, patient denies any fever no chills no other neurologic symptoms. Patient currently is being gently hydrated, and Lasix was held and restarted today at 25% of this dosage normally takes 80 mg in the morning and 60 mg in the evening, enalapril has decreased to 2.5 mg and would be held for low blood pressure, but the stasis and emesis will be followed consult were made with cardiology 01/07: Sodium has improved to 128, CT of the head shows age-related atrophic and chronic small vessel ischemic change without acute intracranial process. Chest x-ray shows bilateral stable effusions. Aldactone and Midodrin still held. Blood pressure has stabilized, he'll be discharged home with follow-up with cardiology and PCP. 01/08: Discharge was delayed until today. Patient was seen and evaluated today. He remains confused but denies any chest pain or increased shortness of breath. The is at the bedside today. His hyponatremia has improved, sodium this morning was 131, BUN 22, creatinine 1.05. Will decrease spironolactone and decrease his Lasix to 40 mg twice a day. Objective - Vital Signs Vital signs: Vital Signs Temp 97.0 F L 01/08/17 07:55 Pulse 104 H 01/08/17 07:55 Resp 18 01/08/17 07:55 BP 95/54 01/08/17 07:55 Pulse Ox 99 01/08/17 08:51 Intake & Output 01/07/17 01/08/17 01/08/17 18:59 06:59 18:59 Intake Total 630 600 360 Output Total 250 1300 Balance 380 -700 360 Weight 87.4 kg Intake: Intake, IV Titration 450 600 Amount Sodium Chloride 0.9% 1, 450 600 000 ml @ 50 mls/hr IV . Q20H [facility] Rx#:[id number] Oral 180 360 Output: Urine 250 1300 Other: Voiding Method Urinal Urinal # Voids 2 1 - Labs CBC & Chem 7: 01/08/17 05:54 01/08/17 05:54 Labs: Abnormal Lab Results - Last 24 Hours (Table) 01/08/17 01/08/17 Range/Units 05:54 05:54 Hgb 12.4 L (13.0-17.5) gm/dL Hct 37.8 L (39.0-53.0) % Lymphocytes # 0.9 L (1.0-4.8) k/uL Sodium 131 L (137-145) mmol/L Chloride 93 L (98-107) mmol/L BUN 22 H (9-20) mg/dL Glucose 100 H (74-99) mg/dL Alkaline Phosphatase 135 H (38-126) U/L Total Protein 6.1 L (6.3-8.2) g/dL Albumin 3.3 L (3.5-5.0) g/dL Assessment and Plan Plan: 1. Lightheadedness dizziness secondary to hypotension, spironolactone 12.5mg, Lasix decreased to 40 mg twice a day. 2 Resolved Anasarca with congestive heart failure mainly diastolic component, last ejection fraction 55% 2. Atrial fibrillation with controlled rate he is chronically anticoagulated with eliquis 5 mg twice a day 3. CAD with previous percutaneous intervention in the past 2012 on aspirin amlodipine metoprolol Lipitor, Vasotec 4. Resolved severe Scrotal edema with hydrocele secondary to anasarca, elevation of scrotum to him to help the edema 5. BPH without any lower tract symptomatology, patient is on Flomax 0.4 mg daily 6. Hypertension currently on metoprolol 7. Dementia on Namenda 10 mg twice a day no changes made 8. Hyperlipidemia on Lipitor 40 9. DVT prophylaxis on eliquis is chronically maintenance atrial fibrillation 10. GI prophylaxis Pepcid 11. CODE STATUS full 12. Impaired endurance and mobility patient was seen by physical therapy The above impression and plan of care have been discussed and directed by signing physician. Jossy Meade nurse practitioner acting as scribe for signing physician.
--- NOTE | 2017-01-09 16:36 | PN ---
Mr. Cochran is a 76-year-old male who presented to the hospital with symptoms of dizziness and lightheadedness. He has a history of coronary artery disease, status post percutaneous revascularization, hypertension, hyperlipidemia as well as history of dementia. He is feeling quite well this morning. His breathing has been stable. He denies any dizziness. He is ambulating without difficulty. He continues to be on Eliquis 5 mg twice a day, Lipitor 40 mg daily , donepezil, Namenda, metoprolol tartrate 25 mg 3 times a day, and spironolactone 12.5 mg daily. PHYSICAL EXAMINATION: Blood pressure 103/60 with a heart rate in the 70s. LUNGS: No wheezes. HEART: Irregularly irregular. S1, S2. No S3. No rub. ABDOMEN: Soft, non-tender. EXTREMITIES: No edema. IMPRESSION: 1. Dizziness, improved. 2. History of coronary artery disease. 3. Persistent atrial fibrillation. 4. Dementia. RECOMMENDATIONS: From the cardiac standpoint, he is stable. He should be able to be discharged home today and follow as an outpatient with Dr. Lombardi. ALLA
== END 2017-01-08 11:22 | disposition home or self-care (01) | DRG 312 ==
LOC: EC 11:14 → 6SEL 15:28
PROVIDERS: ADMIT Family Medicine; ATTEND Family Medicine
DX: I95.1 Orthostatic hypotension (principal); I48.1 Persistent atrial fibrillation; I50.32 Chronic diastolic (congestive) heart failure; E87.1 Hypo-osmolality and hyponatremia; I11.0 Hypertensive heart disease with heart failure; F03.90 Unspecified dementia, unspecified severity, without behavioral disturbance, psychotic disturbance, mood disturbance, and anxiety; E86.0 Dehydration; I27.2 Other secondary pulmonary hypertension; I48.2 Chronic atrial fibrillation; E78.5 Hyperlipidemia, unspecified; F43.10 Post-traumatic stress disorder, unspecified; I25.10 Atherosclerotic heart disease of native coronary artery without angina pectoris; I35.1 Nonrheumatic aortic (valve) insufficiency; N40.0 Benign prostatic hyperplasia without lower urinary tract symptoms; M19.90 Unspecified osteoarthritis, unspecified site; E87.6 Hypokalemia; Z79.01 Long term (current) use of anticoagulants; Z79.899 Other long term (current) drug therapy; Z79.82 Long term (current) use of aspirin; Z87.891 Personal history of nicotine dependence; Z95.5 Presence of coronary angioplasty implant and graft; Z85.89 Personal history of malignant neoplasm of other organs and systems; Z82.49 Family history of ischemic heart disease and other diseases of the circulatory system
CPT/HCPCS: 36415; 70450; 71020; 80048; 80053; 81003; 82550; 82553; 83735; 84132; 84439; 84443; 84481; 84484; 85025; 85610; 85730; 93005; 94760; 99285

== ENCOUNTER 2017-03-05 23:29 | Observation (INO) | payer MEDICARE, OTHER ==
[2017-03-05] MEDS ORDERED: SODIUM CHLORIDE 0.9% 1,000 ML IV STA (23:46)
[2017-03-05] MEDS ORDERED: ASPIRIN 81 MG CHEW PO STA (23:46)
[2017-03-05] MEDS ORDERED: NITROGLYCERIN SL TABS 0.4 MG TAB SUBLINGUAL PRN (23:46)
[2017-03-05] MEDS ORDERED: MORPHINE SULFATE 4 MG/ML SYRINGE IV PRN (23:46)
[2017-03-05] MEDS ORDERED: RX INFO: IV CONTRAST WAS GIVEN 1 EACH MISC MISCELLANE PRN (23:52)
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
[2017-03-05 23:58] LABS: Anisocytosis Slight; Basophils # (A) 0.1 k/uL (0-0.2); Basophils % (A) 1 %; CH 25.8; CHCM 32.4; Eosinophils # (A) 0.2 k/uL (0-0.7); Eosinophils % (A) 3 %; HCT 38.9 % (39.0-53.0); HDW 2.79; HGB 12.9 gm/dL (13.0-17.5); Luc # (Auto) 0.22; Luc % (Auto) 4; Lymphocytes % (A) 16 %; MCH 26.6 pg (25.0-35.0); MCHC 33.2 g/dL (31.0-37.0); MCV 80.1 fL (80.0-100.0); Mean Platelet Volume 7.8; Microcytosis Slight; Monocytes # (A) 0.4 k/uL (0-1.0); Monocytes % (A) 7 %; Neutrophils # (A) 4.3 k/uL (1.3-7.7); Neutrophils % (A) 70 %; RBC 4.86 m/uL (4.30-5.90); RDW 18.1 % (11.5-15.5); WBC 6.1 k/uL (3.8-10.6); WBC (Perox) 6.18
[2017-03-06 00:08] LABS: Calcium 9.2 mg/dL (8.4-10.2); Potassium 3.7 mmol/L (3.5-5.1); Total Bilirubin 0.9 mg/dL (0.2-1.3); Total Protein 6.7 g/dL (6.3-8.2)
[2017-03-06 00:13] LABS: INR 1.4 (<1.2); Partial Thromboplastin Time 25.7 sec (22.0-30.0); Prothrombin Time 13.3 sec (9.0-12.0)
[2017-03-06 00:18] LABS: Creatine Kinase 61 U/L (55-170)
[2017-03-06 00:31] LABS: Creatine Kinase MB 0.8 ng/mL (0.0-2.4); Troponin I <0.012 ng/mL (0.000-0.034)
[2017-03-06] MEDS ORDERED: HEPARIN SODIUM,PORCINE 5,000 UNIT/ML 1 ML VIAL IV ONE (01:06)
[2017-03-06] MEDS ORDERED: HEPARIN SODIUM,PORCINE 5,000 UNIT/ML 1 ML VIAL IV PRN (01:06)
[2017-03-06] MEDS: HEPARIN SODIUM,PORCINE/D5W PMX 25,000 UNIT in DEXTROSE/WATER 1 500ML.BAG IV SCH (01:17)
--- NOTE | 2017-03-06 01:28 | CT ---
EXAM: CT Angiography Chest With Intravenous Contrast CLINICAL HISTORY: Reason: Pain TECHNIQUE: Axial computed tomographic angiography images of the chest with intravenous contrast using pulmonary embolism protocol. CTDI is 3.2, 84. 10, 6.2 mGy and DLP is 255.90 mGy-cm. This CT exam was performed using one or more of the following dose reduction techniques: automated exposure control, adjustment of the mA and/or kV according to patient size, and/or use of iterative reconstruction technique. MIP reconstructed images were created and reviewed. COMPARISON: No relevant prior studies available. FINDINGS: Artifacts: Breathing motion artifact. Pulmonary arteries: No evidence of pulmonary embolus. Aorta: No acute findings. No thoracic aortic aneurysm. Lungs: Small left-sided pleural effusion with adjacent atelectasis. Mild cylindrical bronchiectasis seen predominantly within the right lower lobe. No mass. Pleural space: See above. Heart: Trace pericardial effusion. Coronary artery calcifications. No evidence of RV dysfunction. Bones/joints: No acute fracture. No dislocation. Soft tissues: Unremarkable. Lymph nodes: Subcentimeter mediastinal and hilar lymph nodes. IMPRESSION: 1. No evidence of pulmonary embolus. 2. Trace pericardial effusion. 3. Small left-sided pleural effusion with adjacent atelectasis.
[2017-03-06 07:29] LABS: Cholesterol 102 mg/dL (<200); HDL Cholesterol 41 mg/dL (40-60)
[2017-03-06 07:40] LABS: Creatine Kinase 46 U/L (55-170)
[2017-03-06 07:55] LABS: Creatine Kinase MB 0.6 ng/mL (0.0-2.4); Troponin I <0.012 ng/mL (0.000-0.034)
[2017-03-06] MEDS: ASPIRIN 325 MG TAB PO SCH (10:01)
[2017-03-06] MEDS ORDERED: NON-FORMULARY DRUG (Enalapril 5 MG) PO SCH (11:30)
[2017-03-06] MEDS ORDERED: METOLAZONE 5 MG TAB PO SCH (11:30)
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
[2017-03-06 12:31] LABS: Creatine Kinase 43 U/L (55-170)
--- NOTE | 2017-03-06 12:43 | P.PN ---
Subjective Patient interviewed and examined by me. Elderly gentleman with recurrent chest discomfort with 2 normal cardiac enzymes chronic kidney disease mild cardiac myopathy who follows with Dr. Howe. Low blood pressure Please see full dictation by nurse practitioner Plan Lexiscan cardio lyte stress test tomorrow if third set of cardiac enzymes is normal Hold Vasotec Check d-dimer Objective - Vital Signs Vital signs: Vital Signs Temp 97.7 F 03/06/17 11:55 Pulse 70 03/06/17 11:55 Resp 16 03/06/17 11:55 BP 85/62 03/06/17 11:55 Pulse Ox 97 03/06/17 11:55 Intake & Output 03/05/17 03/06/17 03/06/17 18:59 06:59 18:59 Intake Total 250 236 Balance 250 236 Weight 82.554 kg Intake: Oral 250 236 Other: Voiding Method Toilet Toilet # Voids 3 - Labs CBC & Chem 7: 03/05/17 23:39 03/05/17 23:39 Labs: Abnormal Lab Results - Last 24 Hours (Table) 03/05/17 03/05/17 03/05/17 Range/Units 23:39 23:39 23:39 Hgb 12.9 L (13.0-17.5) gm/dL Hct 38.9 L (39.0-53.0) % RDW 18.1 H (11.5-15.5) % PT 13.3 H (9.0-12.0) sec INR 1.4 H (<1.2) APTT (22.0-30.0) sec Sodium 136 L (137-145) mmol/L Chloride 97 L (98-107) mmol/L BUN 37 H (9-20) mg/dL Creatinine 1.40 H (0.66-1.25) mg/dL Glucose 115 H (74-99) mg/dL Alkaline Phosphatase 168 H (38-126) U/L Total Creatine Kinase (55-170) U/L 03/06/17 03/06/17 Range/Units 06:57 06:57 Hgb (13.0-17.5) gm/dL Hct (39.0-53.0) % RDW (11.5-15.5) % PT (9.0-12.0) sec INR (<1.2) APTT 73.4 H (22.0-30.0) sec Sodium (137-145) mmol/L Chloride (98-107) mmol/L BUN (9-20) mg/dL Creatinine (0.66-1.25) mg/dL Glucose (74-99) mg/dL Alkaline Phosphatase (38-126) U/L Total Creatine Kinase 46 L (55-170) U/L
[2017-03-06 12:44] LABS: Creatine Kinase MB 0.7 ng/mL (0.0-2.4); Troponin I <0.012 ng/mL (0.000-0.034)
[2017-03-06] MEDS: DONEPEZIL 10 MG TAB PO SCH ×2 (15:05→20:29)
[2017-03-06] MEDS: MEMANTINE 10 MG TAB PO SCH ×2 (15:05→20:29)
[2017-03-06] MEDS: SPIRONOLACTONE 25 MG TAB PO SCH (15:33)
[2017-03-06] MEDS: TAMSULOSIN 0.4 MG CAP.ER.24H PO SCH (15:41)
[2017-03-06] MEDS: MIDODRINE 5 MG TAB PO SCH (17:45)
[2017-03-06] MEDS: METOPROLOL TARTRATE 25 MG TAB PO SCH ×2 (17:45→20:29)
[2017-03-06 20:24] VITALS: RESP 18
[2017-03-06] MEDS: METOLAZONE 2.5 MG TAB PO SCH (20:30)
[2017-03-06] MEDS ORDERED: FUROSEMIDE 20 MG TAB PO SCH (21:00)
[2017-03-06] MEDS ORDERED: ATORVASTATIN 40 MG TAB PO SCH (21:00)
[2017-03-07] MEDS: HEPARIN SODIUM,PORCINE/D5W PMX 25,000 UNIT in DEXTROSE/WATER 1 500ML.BAG IV SCH (00:29)
[2017-03-07 06:47] LABS: Anisocytosis Slight; Basophils % (A) 1 %; CH 27.1; CHCM 33.3; Eosinophils # (A) 0.1 k/uL (0-0.7); Eosinophils % (A) 2 %; HCT 37.9 % (39.0-53.0); HDW 2.86; HGB 12.4 gm/dL (13.0-17.5); Luc # (Auto) 0.23; Luc % (Auto) 4; Lymphocytes % (A) 18 %; MCH 26.8 pg (25.0-35.0); MCHC 32.8 g/dL (31.0-37.0); MCV 81.8 fL (80.0-100.0); Mean Platelet Volume 8.2; Microcytosis Slight; Monocytes # (A) 0.5 k/uL (0-1.0); Monocytes % (A) 9 %; Neutrophils # (A) 3.7 k/uL (1.3-7.7); Neutrophils % (A) 66 %; RBC 4.63 m/uL (4.30-5.90); RDW 19.3 % (11.5-15.5); WBC 5.6 k/uL (3.8-10.6); WBC (Perox) 5.86
[2017-03-07] MEDS ORDERED: REGADENOSON 0.4 MG/5 ML SYRINGE IV ONE (09:00)
[2017-03-07] MEDS ORDERED: CYANOCOBALAMIN 500 MCG TAB PO SCH (09:00)
[2017-03-07] MEDS ORDERED: MAGNESIUM OXIDE 400 MG TAB PO SCH (09:00)
[2017-03-07] MEDS ORDERED: ZINC SULFATE 220 MG CAP PO SCH (09:00)
[2017-03-07] MEDS ORDERED: FUROSEMIDE 80 MG TAB PO SCH (09:00)
[2017-03-07] MEDS ORDERED: CALCIUM CARBONATE 500 MG CHEWABLE PO SCH (09:00)
[2017-03-07] MEDS ORDERED: AMINOPHYLLINE 500 MG/20 ML VIAL IV PRN (09:00)
--- NOTE | 2017-03-07 09:58 | ECHOF ---
Referral Reason:chest pain MEASUREMENTS -------- HEIGHT: 182.9 cm WEIGHT: 82.6 kg BP: 111/83 RVIDd: 4.1 cm (< 3.3) IVSd: 1.1 cm (0.6 - 1.1) LVIDd: 3.1 cm (3.9 - 5.3) LVPWd: 1.0 cm (0.6 - 1.1) IVSs: 1.3 cm LVIDs: 2.7 cm LVPWs: 1.2 cm LA Diam: 4.1 cm (2.7 - 3.8) LAESV Index (A-L): 22.15 ml/m Ao Diam: 3.7 cm (2.0 - 3.7) AV Cusp: 1.9 cm (1.5 - 2.6) LA Diam: 4.1 cm (2.7 - 3.8) MV EXCURSION: 19.783 mm (> 18.000) MV EF SLOPE: 100 mm/s (70 - 150) EPSS: 0.8 cm MV E Nic: 0.81 m/s MV DecT: 108 ms MV A Nic: 0.02 m/s MV E/A Ratio: 51.17 RAP: 5.00 mmHg RVSP: 24.48 mmHg FINDINGS -------- Atrial fibrillation. This was a technically adequate study. There is mild concentric left ventricular hypertrophy. Overall left ventricular systolic function is normal with, an EF between 55 - 60 %. The right ventricle is moderately enlarged. Normal LA size by volume 22+/-6 ml/m2. The right atrium is moderately enlarged. The aortic valve is trileaflet, and appears structurally normal. No aortic stenosis or regurgitation. Mild mitral annular calcification present. Mild mitral regurgitation is present. Mild tricuspid regurgitation present. There is no evidence of pulmonary hypertension. The right ventricular systolic pressure, as measured by Doppler, is 24.48mmHg. There is no pulmonic regurgitation present. The aortic root size is normal. There is no pericardial effusion. CONCLUSIONS -------- 1. There is mild concentric left ventricular hypertrophy. 2. The right ventricular systolic pressure, as measured by Doppler, is 24.48mmHg. 3. There is no pulmonic regurgitation present. 4. The aortic root size is normal. 5. There is no pericardial effusion. 6. Overall left ventricular systolic function is normal with, an EF between 55 - 60 %. 7. The right ventricle is moderately enlarged. 8. Normal LA size by volume 22+/-6 ml/m2. 9. The right atrium is moderately enlarged. 10. Mild mitral annular calcification present. 11. Mild mitral regurgitation is present. 12. Mild tricuspid regurgitation present. 13. There is no evidence of pulmonary hypertension. STEEL FABRICATOR: Yusra Childers RDCS
[2017-03-07] MEDS: MIDODRINE 5 MG TAB PO SCH (10:34)
[2017-03-07] MEDS: MEMANTINE 10 MG TAB PO SCH (10:37)
[2017-03-07] MEDS: METOLAZONE 2.5 MG TAB PO SCH (10:37)
[2017-03-07] MEDS: ASPIRIN 325 MG TAB PO SCH (10:38)
[2017-03-07] MEDS: DONEPEZIL 10 MG TAB PO SCH (10:39)
[2017-03-07] MEDS: TAMSULOSIN 0.4 MG CAP.ER.24H PO SCH (10:39)
--- NOTE | 2017-03-07 10:56 | NM ---
EXAMINATION TYPE: NM stress lexiscan cardiolite DATE OF EXAM: 03/07/2017 COMPARISON: NONE HISTORY: Chest pain coronary artery disease TECHNIQUE: After the intravenous administration of 11 mCi Tc 99m Sestamibi - Cardiolite resting SPEC T images acquired 48 minutes post injection. The patient received 0.4mg Lexiscan, 29.8 mCi Tc 99m Sestamibi - Stress images obtained [address] injection FINDINGS: Gated analysis shows normal wall motion with an estimated left ventricular ejection fraction of 48 %. This is low. Normal is greater than 50%. Dyskinesia of the inferior wall is present. There is asymme tric contraction through the heart contraction. Consider echo for closer evaluation. No fixed or reversible perfusion defects are evident. IMPRESSION: No stress-induced ischemic changes identified. 2. Dyskinesia in a symmetric contraction of the left ventricular riddle is present with a low ejection fraction of 48%. Consider additional wall motion evaluation with echocardiography.
[2017-03-07] MEDS: METOPROLOL TARTRATE 25 MG TAB PO SCH (11:17)
[2017-03-07 11:35] VITALS: BP 111/72; PULSE 92; TEMP 97.4
--- NOTE | 2017-03-07 12:08 | CONS ---
CONSULTATION Mr. Cochran is a gentleman who sees Dr. Lombardi in the outpatient setting. He came in with chest pain yesterday, atypical in nature with moderate risk factors. He is resting comfortable without symptoms. Vital signs are stable. There is no JVD or carotid bruits. S1, S2 heard normally. The lungs are clear. Abdomen and lower extremity exam is unchanged. His echo revealed normal systolic function. He has chronic atrial fib with right ventricle enlarged. But this is not probably new. He will have a Lexiscan stress test and if this is normal, he will be discharged. He will follow up with Dr. Lombardi in the outpatient setting. MMODL / IJN: [id number] /
[2017-03-07] MEDS: SPIRONOLACTONE 25 MG TAB PO SCH (12:35)
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
--- NOTE | 2017-03-08 11:19 | EST ---
DATE OF SERVICE: 03/07/2017 TYPE OF REPORT: Lexiscan Cardiolite INDICATION: Chest pain. BASELINE HEART RATE: 80 BASELINE BLOOD PRESSURE: 111/80 MAXIMUM HEART RATE: 101 MAXIMUM BLOOD PRESSURE: 101/78 85% MPHR: 100% MPHR: METS: MAX STAGE REACHED: TOTAL EXERCISE TIME: Baseline EKG revealed atrial fib controlled ventricular rate, poor R wave progression, nonspecific ST-T changes. With the Lexiscan administration, patient did not have significant symptoms. Heart rate changed from 80 to 101 beats per minute. Blood pressure changed from 111/80 to 101/78. EKG remained inconclusive. By EKG criteria, this is an inconclusive Lexiscan stress test because of minor resting EKG changes. The nuclear scan results, which are more pertinent, will be reported by the radiologist. ALLA
== END 2017-03-07 14:22 | disposition home or self-care (01) ==
LOC: EC 23:29 → 3OBS 23:47
PROVIDERS: ADMIT Internal Medicine Geriatric Medicine; ATTEND Internal Medicine Geriatric Medicine
DX: R07.89 Other chest pain (principal); I25.10 Atherosclerotic heart disease of native coronary artery without angina pectoris; I48.2 Chronic atrial fibrillation; I13.0 Hypertensive heart and chronic kidney disease with heart failure and stage 1 through stage 4 chronic kidney disease, or unspecified chronic kidney disease; N18.9 Chronic kidney disease, unspecified; I50.32 Chronic diastolic (congestive) heart failure; E78.5 Hyperlipidemia, unspecified; F43.10 Post-traumatic stress disorder, unspecified; Z79.899 Other long term (current) drug therapy; Z79.01 Long term (current) use of anticoagulants; Z79.82 Long term (current) use of aspirin; Z95.5 Presence of coronary angioplasty implant and graft; Z87.891 Personal history of nicotine dependence; Z77.098 Contact with and (suspected) exposure to other hazardous, chiefly nonmedicinal, chemicals; Z82.49 Family history of ischemic heart disease and other diseases of the circulatory system; Z86.73 Personal history of transient ischemic attack (TIA), and cerebral infarction without residual deficits; Z85.89 Personal history of malignant neoplasm of other organs and systems; I27.2 Other secondary pulmonary hypertension; N40.0 Benign prostatic hyperplasia without lower urinary tract symptoms; I95.9 Hypotension, unspecified; M19.90 Unspecified osteoarthritis, unspecified site; N17.9 Acute kidney failure, unspecified; I08.1 Rheumatic disorders of both mitral and tricuspid valves; F03.90 Unspecified dementia, unspecified severity, without behavioral disturbance, psychotic disturbance, mood disturbance, and anxiety
CPT/HCPCS: 96365; 96366; 96361; 96372; 99291; 36415; 93005 ×2; 93017; 93306; 85379; 83880; 80061; 80053; 82550 ×2; 82553 ×2; 83735; 84484 ×2; 85025 ×2; 85610; 85730 ×3; 71275; 78452; G0378 ×3; A9500; J1644 ×3; Q9967; J2785

== ENCOUNTER 2017-04-06 11:55 | Emergency (ER) | payer MEDICARE, OTHER ==
[2017-04-06] MEDS ORDERED: FUROSEMIDE 10 MG/ML 4 ML VIAL IV STA (12:20)
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
[2017-04-06 12:42] LABS: Anisocytosis Moderate; Basophils # (A) 0.1 k/uL (0-0.2); Basophils % (A) 1 %; CH 26.1; CHCM 30.7; Eosinophils # (A) 0.2 k/uL (0-0.7); Eosinophils % (A) 4 %; HCT 37.9 % (39.0-53.0); HDW 2.76; Hypochromasia Moderate; Luc # (Auto) 0.21; Luc % (Auto) 3; Lymphocytes # (A) 0.7 k/uL (1.0-4.8); Lymphocytes % (A) 12 %; MCH 27.2 pg (25.0-35.0); MCHC 31.6 g/dL (31.0-37.0); Mean Platelet Volume 7.7; Microcytosis Slight; Monocytes # (A) 0.6 k/uL (0-1.0); Monocytes % (A) 9 %; Neutrophils # (A) 4.4 k/uL (1.3-7.7); Neutrophils % (A) 71 %; RBC 4.41 m/uL (4.30-5.90); RDW 20.2 % (11.5-15.5); WBC 6.2 k/uL (3.8-10.6); WBC (Perox) 6.51
[2017-04-06 12:47] LABS: INR 1.4 (<1.2); Partial Thromboplastin Time 24.4 sec (22.0-30.0); Prothrombin Time 13.3 sec (9.0-12.0)
[2017-04-06 12:55] LABS: ALT 48 U/L (21-72); AST 29 U/L (17-59); Alkaline Phosphatase 151 U/L (38-126); Anion Gap 10 mmol/L; Blood Urea Nitrogen 26 mg/dL (9-20); Calcium 9.1 mg/dL (8.4-10.2); Carbon Dioxide 27 mmol/L (22-30); Chloride 103 mmol/L (98-107); Glucose 96 mg/dL (74-99); Non-African American GFR(MDRD) 55 (>60 ml/min/1.73 sqM); Potassium 4.8 mmol/L (3.5-5.1); Sodium 140 mmol/L (137-145); Total Bilirubin 0.7 mg/dL (0.2-1.3); Total Protein 6.4 g/dL (6.3-8.2)
--- NOTE | 2017-04-06 13:03 | XR ---
EXAMINATION TYPE: XR chest 2V DATE OF EXAM: 04/06/2017 COMPARISON: 03/22/2017 HISTORY: 76-year-old male difficulty breathing, shortness of breath, fluid retention TECHNIQUE: AP and lateral views FINDINGS: Heart is upper limits of normal in size. The pulmonary vasculature appears cephalized. There are smal l pleural effusions with adjacent opacity. No yolanda consolidation. IMPRESSION: Borderline heart size with prominent appearance to the pulmonary vasculature and small effusions. Cor relate for mild CHF. No yolanda pulmonary edema.
[2017-04-06 13:07] LABS: Creatine Kinase 47 U/L (55-170)
[2017-04-06 13:20] LABS: Creatine Kinase MB <0.2 ng/mL (0.0-2.4); Troponin I <0.012 ng/mL (0.000-0.034)
[2017-04-06 13:35] VITALS: RESP 18
[2017-04-06 14:37] VITALS: BP 109/70; PULSE 79; TEMP 98
== END 2017-04-06 14:34 | disposition home or self-care (01) ==
LOC: EC 11:55
DX: R05 Cough (principal); R60.0 Localized edema; I48.91 Unspecified atrial fibrillation; I25.10 Atherosclerotic heart disease of native coronary artery without angina pectoris; I11.0 Hypertensive heart disease with heart failure; I50.9 Heart failure, unspecified; M19.90 Unspecified osteoarthritis, unspecified site; E78.5 Hyperlipidemia, unspecified; Z95.5 Presence of coronary angioplasty implant and graft; Z86.73 Personal history of transient ischemic attack (TIA), and cerebral infarction without residual deficits; Z82.49 Family history of ischemic heart disease and other diseases of the circulatory system; Z87.891 Personal history of nicotine dependence; Z79.01 Long term (current) use of anticoagulants; Z79.82 Long term (current) use of aspirin; Z79.899 Other long term (current) drug therapy
CPT/HCPCS: 36415; 71020; 80053; 82550; 82553; 83735; 83880; 84484; 85025; 85610; 85730; 87040; 93005; 99285

== ENCOUNTER → 2017-04-10 | Outpatient (CLI) | payer MEDICARE, OTHER ==
--- NOTE | 2017-04-10 11:46 | FL ---
Modified barium swallow HISTORY: Dysphagia Patient was given barium mixed with liquids and solids and evaluated in real-time fluoroscopy in the lateral projection. There is no laryngeal penetration or aspiration noted. Swallowing mechanism is normal. 1 minute 32 seconds fluoroscopy time supplied. Single image documents the procedure.
== END ==
LOC: RADFLMAIN 11:08
PROVIDERS: ATTEND Internal Medicine Geriatric Medicine
DX: R13.10 Dysphagia, unspecified (principal)
CPT/HCPCS: 74230